=== PATIENT | male | born 1940 | race Caucasian/White ===

== ENCOUNTER 2016-04-14 11:40 | Emergency (ER) | payer MEDICARE, OTHER ==
[~2016-04-14] VITALS: Ht 180.3 cm; Wt 74.8 kg
[~2016-04-14 11:40] MED LIST: ASPIR 8181 MG PO; ASPIRIN 325MG325 MG PO; CARAFATE1 GM PO; CARVEDILOL6.25 MG PO; FLONASE 50 MCG16 GM; FOLIC ACID 1MG T1 MG PO; HYDROCHLOROTHIA25 M1 PO; HYDROXYCHLOROQ200 M1 PO; HYTRIN5 MG PO; IBUPROFEN200 MG PO; K-DUR 2020 MEQ PO; LEFLUNOMIDE20 MG PO; LEVAQUIN500 MG PO; LISINOPRIL5 MG PO; METHOTREXATE2.5 M1 PO; METOCLOPRAMIDE10 M3 PO; METOCLOPRAMIDE5 MG PO; PANTOPRAZOLE SO40 M1 PO; PRAVACHOL40 MG PO; PROTONIX40 MG PO; VITAMIN B-1100 MG PO; VITAMIN D1000 IU PO
--- NOTE | 2016-04-14 11:48 | Emergency Room Report ---
History of Present Illness Time Seen by 114Jimena Presenting Problem in Triage Pt arrived: Presenting Problem: Onset of symptoms date/time:/ or onset unknown for: Treatment Prior to Arrival: [facility] Provided by: Sepsis Risk Assessment: Temp: B/P: MAP: Pulse: Resp: Recent fever? Clinical Suspician of Infection? Mental Status: Sepsis Risk: Have you (or family members/close friends) recently traveled outside the [place]? If Yes, where/when: Have you had exposure to infectious disease within the past month? TB? Other? Specify: Source patient, RN notes reviewed Exam Limitations no limitations Comment Pt comes to the ED feeling weaker than a kitten since Monday. Now with pain in the abdomen below his beltline but no vomiting or diarrhea. He was anemia in Nov and in Feb. and required a total of 3 units of blood. He was treated with Chemotherapy in October for Lung Cancer and his last CT scan was reportedly clear. He has not noticed any black, tarry stools, and no BRB per rectum but he is on oral iron. NO fever Cardiac Chest Pain Chest pain indicative of cardiac No ALLERGIES Coded Allergies: No Known Allergies (03/11/16) Home Medications Active Scripts Sucralfate (Carafate) 1 GM PO ACHS #120 TAB Ref 4 Prov: 01/17/15 Aspirin (Aspirin EC 81MG Tab) 81 MG PO QHS #100 TAB Ref 4 Prov: 01/17/15 Pantoprazole Sodium (Protonix) 40 MG PO BID #60 TAB Ref 4 Prov: 01/17/15 Carvedilol (Carvedilol 6.25MG) 6.25 MG PO BID #60 TAB Ref 4 Prov: 01/17/15 Reported Medications HYDROCHLOROTHIAZIDE (Hydrochlorothiazide) 12.5 MG PO DAILY Lisinopril 5 MG PO BID #90 TAB Pravastatin Sodium (Pravachol) 40 MG PO QHS #90 THIAMINE HCL (Vitamin B-1) 100 MG PO DAILY #1 Leflunomide 20 MG PO DAILY #90 Fluticasone Propionate (Flonase [address]) 1 SPRAY NA DAILY #16 Ibuprofen (Ibuprofen 200MG) 200 MG PO Q6HP PRN PAIN #2 FOLIC ACID (Folic Acid) 1 MG PO DAILY #1 CHOLECALCIFEROL (VITAMIN D3) (Vitamin D3) 1,000 IUNITS PO DAILY #1 METHOTREXATE SODIUM (Methotrexate) 2.5 MG PO WEEKLY #52 Terazosin Hcl (Hytrin) 5 MG PO QHS #90 Potassium Chloride (K-Dur) 20 MEQ PO DAILY #180 HYDROXYCHLOROQUINE SULFATE (Hydroxychloroquine Sulfate) 200 MG PO DAILY #180 History Medical History General CAD? No Angina: Yes OR: Yes Hypertension? Yes Hyperlipidemia? Yes CHF? No DVT? No PE? No COPD? Yes Asthma? No Anemia? Yes GERD? No Gastric ulcers? No GI Bleed? No Hernia? Yes Thyroid Problems? No Hypothyroidism? No CVA? No Seizures? No Diabetes? No Renal Insuffiency? No End Stage Renal Disease? No UTI? Yes Stones? No BPH? No GB Disease: Yes Nephritic Syndrome? No Asplenia? No Hepatitis? No Sickle Cell Disease? No Arthritis? Yes Migraines? No Cataracts? No Glaucoma? No MRSA? No HIV? No TB? No Anxiety? No Depression? No Cancer? No Immunization Hx DT/Tetanus > 10 YRS Flu 01/17/15 Pneumonia Received In Past Surgical Hx Previous Surgery?Y Tonsils LAP VENTRAL HERNIA CABG 5 VESSELS CHOLECYSTECTOMY TRIGGER FINGER RELEASE LT PTCA 1985 +OR Family History Family Hx Diabetes Yes CAD Yes Hypertension Yes Hyperlipidemia Yes Cancer No TB No Social History Smoking Hx Packs/day < 1 Pack Alcohol Alcohol: No Review of Systems All Other Systems Reviewed and Negative Constitutional see HPI Gastrointestinal see HPI Physical Exam Vital Signs Vital Signs Date Time Temp Pulse Resp B/P Pulse O2 O2 Flow FiO2 Ox Delivery Rate 04/14 1606 76 18 175/99 97 04/14 1536 87 18 163/88 96 04/14 1456 98.2 74 18 166/87 96 04/14 1400 86 18 153/77 97 04/14 1324 70 16 165/84 91 04/14 1247 60 16 165/80 95 04/14 1145 98.0 68 16 145/78 95 General Appearance WD/WN, no apparent distress, pale white gentleman Respiratory Status No: respiratory distress. Lung Sounds bilateral: normal breath sounds. 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 No Results/Orders Laboratory Tests 04/14/16 1300: Urine Color YELLOW, Urine Appearance CLEAR, Urine pH 8.5, Ur Specific [place] 1.015, Urine Protein TRACE H, Urine Ketones NEGATIVE, Urine Blood NEGATIVE, Urine Nitrate NEGATIVE, Urine Bilirubin NEGATIVE, Urine Urobilinogen 0.2, Ur Leukocyte Esterase NEGATIVE, Urine WBC 3-5, Ur Squamous Epith Cells OCC, Urine Bacteria 2+, Hyaline Casts OCC, Urine Glucose NEGATIVE 04/14/16 1233: Lactic Acid 0.6 04/14/16 1200: Sodium 134 L, Potassium 4.1, Chloride 100, Carbon Dioxide 30, BUN 17, Creatinine 1.4 H, Estimated Creat Clear 47 L, Estimated GFR (MDRD) 49, Glucose 102, Calcium 8.5, Total Bilirubin 0.8, AST 16, ALT 17, Alkaline Phosphatase 135 H, Total Protein 6.2 L, Albumin 2.3 L, Globulin 3.9 H, Albumin/Globulin Ratio 0.6 L, PT 11.4, INR 1.07, WBC 4.7 L, RBC 3.42 L, Hgb 9.2 L, Hct 30.3 L, MCV 88.8, RDW 18.7 H, Plt Count 125 L, MPV 9.3, Gran % 74.0, Gran # 3.5, Lymphocytes % 16.0, Monocytes % 8.3, Eosinophils % 1.6, Basophils % 0.2, Lymphocytes # 0.8, Monocytes # 0.4, Eosinophils # 0.1, Basophils # 0.0, PUBS MCHC 30.3 L, MCH 26.9 L Current Medication Orders Sig/Yunior Start time Last Medication Dose Route Stop Time Status Admin Diatrizoate Meglum/ 0 .STK-MED ONE 04/14 1233 DC Diatrizoate Sod .ROUTE Promethazine HCl 0 .STK-MED ONE 04/14 1233 DC .ROUTE Sodium Chloride 1,000 ML .STK-MED ONE 04/14 1233 DC IV Sodium Chloride 25 ML .STK-MED ONE 04/14 1232 DC IV Diatrizoate Meglum/ 30 ML ONCE ONE 04/14 1230 DC 04/14 Diatrizoate Sod PO 04/14 1231 1236 Promethazine HCl 12.5 MG ONCE ONE 04/14 1230 DC 04/14 IV 04/14 1231 1236 Sodium Chloride 25 ML ONCE ONE 04/14 1230 DC 04/14 IV 04/14 1244 1237 Sodium Chloride 10 ML PRN PRN 04/14 1215 AC IV 04/15 1215 Sodium Chloride 1,000 ML .Q1H1M 04/14 1215 DC 04/14 IV 04/14 1315 1236 Sodium Chloride 10 ML PRN PRN 04/14 1215 AC IV 04/15 1215 Sodium Chloride 1,000 ML .Q10H 04/14 1215 AC IV 04/15 0015 Sodium Chloride 10 ML PRN PRN 04/14 1215 AC IV 04/15 1215 Orders Procedure Date/time Status DIET-NOTHING BY MOUTH 04/14 D Active CULTURE, URINE 04/14 1300 Active CULTURE, BLOOD 04/14 1225 Active CULTURE, BLOOD 04/14 1224 Active 12 LEAD EKG-BESSON (INITIAL) 04/14 1220 Active ELECTROCARDIOGRAM REQUEST 04/[address] ABD/PELVIS REQ 04/14 1217 Complete IV SALINE LOCK 04/14 1217 Active URINALYSIS/COMPLETE 04/14 1217 Complete PROTHROMBIN TIME 04/14 1217 Complete LACTIC ACID 04/14 1217 Complete CBC WITH AUTO DIFF 04/14 1217 Complete CHEM 12 PROFILE 04/14 1217 Complete CM/EKG CM/EKG EKG rate (64), NSR, LVH by voltage, ? Old inferior infarct pattern, tall peaked T waves XRAY/CT/US XRAY/CT/US CT abdomen, pelvis CT interpretation by discussed w/radiologist Time results known: 1619 CT Results No acute pathology. 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 Hunter and pt. being allowed to go home to continue drinking more fluids and followup with Dr. Hunter as scheduled next week Discharge Counseling Counseled pt/family regarding diagnosis, test results, home care, follow up needs ED Critical Care Critical Care No If Critical Care minutes are documented, the time involved in the performance of seperately reportable procedures was not counted toward critical care time documented. I directly delivered medical care to this critically ill and/or injured patient. Timely evaluation and treatment was necessary to address the significant organ system(s) dysfunction present in this patient. at [id number]
[2016-04-14 12:24] LABS: HEMOGLOBIN 9.2 g/dL (14.1-18.0); LYMPH # 0.8 K/mm3 (0.7-4.5)
[2016-04-14 13:07] LABS: URINE BILIRUBIN - DIPSTICK NEGATIVE (NEG); URINE BLOOD NEGATIVE (NEG)
[2016-04-14 13:12] LABS: URINE SQUAMOUS CELLS OCC #/hpf (OCC)
--- NOTE | 2016-04-14 15:06 | RADIOLOGY REPORT PS360 ---
CT ABD PELVIS W/O CONTRAST CLINICAL INDICATION: Abdominal pain ABD PAIN, ORAL CONTRAST ONLY ORDERING PHYSICIAN: Patricia Yu MD PATIENT AGE: 76 years COMPARISON: 11/10/2010 TECHNIQUE: Axial images obtained with sagittal and coronal reformats. PROCEDURE: Oral Contrast: [Gastroview] IV Contrast: None . FINDINGS: There is chronic consolidation in the right lung base small pleural effusion with pleural parenchymal thickening and fibrotic changes. The consolidation has somewhat improved since a chest CT of 03/04/2016. There is been a prior median sternotomy and there are coronary artery calcifications. No focal liver lesion. There is indentation along the lateral aspect of the right hepatic lobe nonspecific having a similar appearance on the previous chest CT. Prior cholecystectomy. Spleen is unremarkable. Mild prominence of the left adrenal gland unchanged. Unremarkable pancreas. 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 Unremarkable appendix. Sigmoid diverticulosis. No diverticulitis. No intestinal obstruction or free air. Atherosclerotic changes involve the abdominal aorta No acute bony anomalies IMPRESSION: 1. No acute intra-abdominal or pelvic pathology. 2. Chronic consolidation with effusion involving the right lower lobe. The consolidation is slightly improved since previous chest CT of 03/04/2016. 3. Nonacute findings including horseshoe kidney.
[2016-04-14 16:39] VITALS: BP 153/81
[2016-04-28] MEDS ORDERED: APAP/OXYCODONE1 TA1 PO (10:50)
[2016-04-28] MEDS ORDERED: FENTANYL 225 MCG/EAC TD (10:51)
[2016-04-28] MEDS ORDERED: VITAMIN B12 PO (10:53)
[2016-04-28] MEDS ORDERED: FERROUS SULFAT325 M2 PO (10:54)
[2016-04-28] MEDS ORDERED: IMDUR 30MG. TAB30 MG PO (13:36)
== END 2016-04-14 16:41 | disposition home or self-care (01) ==
LOC: ER 11:40
PROVIDERS: General Practice
DX: R53.1 Weakness (principal); D50.0 Iron deficiency anemia secondary to blood loss (chronic); N17.9 Acute kidney failure, unspecified; I10 Essential (primary) hypertension; Z85.118 Personal history of other malignant neoplasm of bronchus and lung; J44.9 Chronic obstructive pulmonary disease, unspecified; Z95.1 Presence of aortocoronary bypass graft

== ENCOUNTER 2016-11-28 18:17 | Inpatient (IN) | payer MEDICARE, OTHER ==
[~2016-11-28] VITALS: Ht 180.3 cm; Wt 72.8 kg
[~2016-11-28 18:17] MED LIST changes: +APAP/OXYCODONE1 TA1 PO; +FENTANYL 225 MCG/EAC TD; +FERROUS SULFAT325 M2 PO; -HYDROXYCHLOROQ200 M1 PO; +IMDUR 30MG. TAB30 MG PO; +LISINOPRIL 10MG10 MG PO; -LISINOPRIL5 MG PO; +PLAQUENIL200 MG PO; +VITAMIN B12 PO
[2016-11-28 18:35] VITALS: BP 110/74
[2016-11-28 19:10] LABS: HEMOGLOBIN 10.2 g/dL (14.1-18.0); LYMPH # 1.4 K/mm3 (0.7-4.5); LYMPH % 13.8 % (10-50)
[2016-11-28 19:11] LABS: URINE BILIRUBIN - DIPSTICK NEGATIVE (NEG); URINE BLOOD NEGATIVE (NEG)
--- NOTE | 2016-11-28 20:22 | Emergency Room Report ---
History of Present Illness Time Seen by 1999 Presenting Problem in Triage Pt arrived:Walked Presenting Problem:ABD PAIN BEGAN THIS AM, NAUSEA, DENIES VOMITING, DIARRHEA Onset of symptoms date/time:/ or onset unknown for:MEDICAL HX UNKNOWN Treatment Prior to Arrival: [facility] Provided by: Sepsis Risk Assessment: Temp: 98 B/P: 110/74 MAP: 86 Pulse: 83 Resp: 18 Recent fever? N Clinical Suspician of Infection? N Mental Status: 1 - Regular (Normal Baseline) Sepsis Risk:Low Sepsis Risk Have you (or family members/close friends) recently traveled outside the [place]? N If Yes, where/when: Have you had exposure to infectious disease within the past month? N TB? Other? Specify: Source patient, RN notes reviewed, family, old records Exam Limitations no limitations Comment pt with 1 day hx of abd pain with nausea but no fever or vomiting Cardiac Chest Pain Chest pain indicative of cardiac No Timing/Duration this evening Severity moderate ALLERGIES Coded Allergies: No Known Allergies (08/05/16) Home Medications Active Scripts Aspirin (Aspirin EC 81MG Tab) 81 MG PO QHS #100 TAB Ref 4 Prov: 01/17/15 Carvedilol (Carvedilol 6.25MG) 6.25 MG PO BID #60 TAB Ref 4 Prov: 01/17/15 Reported Medications [VITAMIN B12] 1 PO DAILY Ferrous Sulfate (Ferrous Sulfate 325MG) 325 MG PO DAILY ISOSORBIDE MONONITRATE (IMDUR 30MG) 30 MG PO DAILY Lisinopril 5 MG PO BID #90 TAB Pravastatin Sodium (Pravachol) 40 MG PO QHS #90 THIAMINE HCL (Vitamin B-1) 100 MG PO DAILY #1 Leflunomide 20 MG PO DAILY #90 Fluticasone Propionate (Flonase 50 Mcg Nasal [place]) 1 SPRAY NA DAILY #16 Ibuprofen (Ibuprofen 200MG) 200 MG PO Q6HP PRN PAIN #2 FOLIC ACID (Folic Acid) 1 MG PO DAILY #1 CHOLECALCIFEROL (VITAMIN D3) (Vitamin D3) 1,000 IUNITS PO DAILY #1 Terazosin Hcl (Hytrin) 5 MG PO QHS #90 Potassium Chloride (K-Dur) 20 MEQ PO DAILY #180 HYDROXYCHLOROQUINE SULFATE (Hydroxychloroquine Sulfate) 200 MG PO DAILY #180 History Medical History General CAD? No Angina: Yes ME: Yes Hypertension? Yes Hyperlipidemia? Yes CHF? No DVT? No PE? No COPD? Yes Asthma? No Anemia? Yes GERD? No Gastric ulcers? No GI Bleed? No Hernia? Yes Thyroid Problems? No Hypothyroidism? No CVA? No Seizures? No Diabetes? No Renal Insuffiency? No End Stage Renal Disease? No UTI? Yes Stones? No BPH? No GB Disease: Yes Nephritic Syndrome? No Asplenia? No Hepatitis? No Sickle Cell Disease? No Arthritis? Yes Migraines? No Cataracts? No Glaucoma? No MRSA? No HIV? No TB? No Anxiety? No Depression? No Cancer? Yes Site: LUNG More? No Immunization Hx DT/Tetanus > 10 YRS Flu 01/17/15 Pneumonia Received In Past Surgical Hx Previous Surgery?Y Tonsils LAP VENTRAL HERNIA CABG 5 VESSELS CHOLECYSTECTOMY TRIGGER FINGER RELEASE LT PTCA 1985 +ME Family History Family Hx Diabetes Yes CAD Yes Hypertension Yes Hyperlipidemia Yes Cancer No TB No Social History Smoking Hx Smoker: Never Smoker Tobacco: No Packs/day < 1 Pack Alcohol Alcohol: No Drugs none Review of Systems All Other Systems Reviewed and Negative Constitutional denies fever Eyes denies drainage ENT denies: ear discharge, epistaxis, throat pain. Respiratory denies cough, denies shortness of breath, denies wheezing Cardiovascular denies chest pain, denies palpitations, denies syncope Gastrointestinal see HPI, abdominal pain, denies diarrhea, nausea, vomiting Genitourinary denies: dysuria, frequency, hesitancy, hematuria. Musculoskeletal denies back pain, denies joint pain, denies joint swelling, denies neck pain Skin denies rash Psychiatric/Neurological denies headache, denies seizure Physical Exam Vital Signs Vital Signs Date Time Temp Pulse Resp B/P Pulse O2 O2 Flow FiO2 Ox Delivery Rate 11/28 2113 97.8 68 20 97/55 96 11/282 20 11/28 1835 98.0 83 18 110/74 98 - WBC >12,000 or <4,000 or 10% bands? 2 or more SIRS Criteria Met? B/P: MAP:86 Creatinine >2.0? UA output<0.5ml/kg/hr for 2 hrs? Platelet count >100,000? Lactate >2.0mmol/1? INR >1.2 or PTT > than 60 sec? Evidence of Organ Dysfunction? Provider documented clinical suspician of infection? N Sepsis Criteria Count: 0 Sepsis Risk: Low Sepsis Risk General Appearance no apparent distress Eye Exam - bilateral eye PERRL, bilateral eye EOMI Ear, Nose, Throat normal ENT inspection Neck supple Respiratory Status No: respiratory distress. Lung Sounds bilateral: lungs clear. 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 No Results/Orders Laboratory Tests 11/28/16 2100: Lactic Acid 2.0 11/28/161849: Troponin I 0.06, Amylase 51, Lipase 88 11/28/161849: Sodium 136, Potassium 4.1, Chloride 102, Carbon Dioxide 26, BUN 19 H, Creatinine 1.3, Estimated Creat Clear 48 L, Estimated GFR (MDRD) 54, Glucose 115 H, Calcium 8.9, Total Bilirubin 0.7, AST 12 L, ALT 15, Alkaline Phosphatase 143 H, Total Protein 6.5, Albumin 2.6 L, Globulin 3.9 H, Albumin/ Globulin Ratio 0.7 L, WBC 9.9, RBC 3.39 L, Hgb 10.2 L, Hct 31.1 L, MCV 91.8, RDW 15.0, Plt Count 233, MPV 9.0, Gran % 80.1 H, Gran # 7.9, Lymphocytes % 13.8 , Monocytes % 4.1, Eosinophils % 1.8, Basophils % 0.3, Lymphocytes # 1.4, Monocytes # 0.4, Eosinophils # 0.2, Basophils # 0.0, PUBS MCHC 32.9, MCH 30.2, Urine Color YELLOW, Urine Appearance CLEAR, Urine pH 6.0, Ur Specific [place] 1.025, Urine Protein NEGATIVE, Urine Ketones NEGATIVE, Urine Blood NEGATIVE, Urine Nitrate NEGATIVE, Urine Bilirubin NEGATIVE, Urine Urobilinogen 1.0, Ur Leukocyte Esterase NEGATIVE, Urine RBC OCC, Urine WBC 3-5, Ur Squamous Epith Cells 5-10, Urine Bacteria 1+, Urine Mucus 1+, Urine Glucose NEGATIVE Current Medication Orders Sig/Yunior Start time Last Medication Dose Route Stop Time Status Admin Morphine Sulfate 0 .STK-MED ONE 11/29 2111 DC .ROUTE Morphine Sulfate 2 MG ONCE ONE 11/28 2100 DC 11/28 IV 11/28 Sodium Chloride 1,000 ML .Q10H 11/28 2029 AC 11/28 IV 11/29 Sodium Chloride 10 ML PRN PRN 11/28 2029 AC IV 11/29 2025 Sodium Chloride 1,000 ML .STK-MED ONE 11/29 2027 DC IV Sodium Chloride 10 ML PRN PRN 11/28 190 AC IV 11/29 184 Orders Procedure Date/time Status DIET-NOTHING BY MOUTH 11/29 B Active Decision to admit 11/[address] ABD & PELVIS W/O CONTRAST 11/[address] SCAN REQ 11/28 2025 Complete TROPONIN I 11/28 2025 Complete LIPASE 11/28 2025 Complete LACTIC ACID 11/28 2025 Complete AMYLASE 11/28 2025 Complete IV SALINE LOCK 11/29 1847 Active URINALYSIS/COMPLETE 11/29 1847 Complete CBC WITH AUTO DIFF 11/29 1847 Complete CHEM 12 PROFILE 11/29 1847 Complete XRAY/CT/US XRAY/CT/US CT abdomen, pelvis CT interpretation by discussed w/radiologist Time results known: 2128 CT Results abnormal (sbo) Departure Departure Time of Disposition 2124 Disposition Still a Patient Clinical Impression Primary Impression: SBO (small bowel obstruction) Secondary Impressions: Anemia Qualifiers: Anemia type: unspecified type Qualified Code: D64.9 - Anemia, unspecified Condition STABLE Referrals Rocky Valentine MD discussed with dr valentine ED Critical Care Critical Care No at 2129
[2016-11-28 22:21] VITALS: BP 158/85
[2016-11-28 22:24] VITALS: BP 158/85
[2016-11-28] MEDS ORDERED: ASPIRIN325 M1 PO (22:37)
[2016-11-29 00:53] VITALS: BP 117/62
[2016-11-29 04:10] VITALS: BP 130/67
--- NOTE | 2016-11-29 05:23 | RADIOLOGY REPORT PS360 ---
CT ABD PELVIS W/O CONTRAST CLINICAL INDICATION: Severe abdominal pain with nausea and vomiting ABD PAIN ORDERING PHYSICIAN: Jsutine Hunter MD PATIENT AGE: 76 years COMPARISON: To 217 TECHNIQUE: Axial images obtained with sagittal and coronal reformats. PROCEDURE: Oral Contrast: None IV Contrast: None . FINDINGS: Lung base images show severe coronary artery calcifications. Chronic pleural-parenchymal changes are present in the bilaterally right greater than left with mild bronchiectasis in the right lower lobe and small loculated right pleural effusion not significantly changed. Prior cholecystectomy without biliary dilatation. 1 cm isodensity involves the intersegment of the medial segment of the left hepatic lobe unchanged. Spleen pancreas and adrenal glands are unremarkable. There is a horseshoe kidney. No hydronephrosis or nephrolithiasis or ureterolithiasis apparent. No evidence of appendicitis or diverticulitis. There is extensive sigmoid diverticulosis as well as diverticulosis of the descending colon. Fluid-filled loops of small bowel are present with air-fluid levels. There does appear to be a transition point in the anterior abdomen centrally somewhat difficult to evaluate without IV and oral contrast. No free air evident. Postsurgical changes from prior ventral hernia repair. There is a mild amount of fluid in the pelvis. No acute bony anomalies. IMPRESSION: 1. Multiple loops of mildly dilated small bowel in the mid and proximal small bowel with transition point in the anterior mid abdomen consistent with partial small bowel obstruction. 2. Small amount fluid in the pelvis. 3. Other nonacute findings as described
[2016-11-29 06:49] LABS: LYMPH # 1.3 K/mm3 (0.7-4.5); LYMPH % 20.8 % (10-50)
[2016-11-29 06:50] LABS: HEMOGLOBIN 8.7 g/dL (14.1-18.0)
--- NOTE | 2016-11-29 07:37 | PHARMACY CLINIC NOTE ---
Patient Demographics Patient Demographics Admission date: 11/28/16 Date: 11/29/16 Time: 0736 Allergies Coded Allergies: No Known Allergies (08/05/16) HEIGHT- FT: 5 IN: 11.00 K.882 VTE General Information Labs: Laboratory Tests 11/29 11/28 0615 1850 Hematology Hgb (14.1 - 18.0 g/dL) 8.7 L 10.2 L Hct (42.0 - 52.0 %) 26.4 L 31.1 L Plt Count (142 - 424 K/mm3) 185 233 Disclaimer The following section includes nursing documentation that has been pulled in for pharmacy review. Patient's VTE score: 5 Patient's VTE Risk: LOW RISK Clinical trial participant? No VTE prophylaxis [id number] [id number] VTE prophylaxis ordered? Yes Type of prophylaxis/treatment: TERRY at 0737
[2016-11-29 07:43] VITALS: BP 152/80
[2016-11-29 07:54] VITALS: BP 152/80
[2016-11-29] MEDS ORDERED: FERROUS GLUCON324 MG PO (09:14)
[2016-11-29] MEDS ORDERED: CYTOTEC 200MC200 MC1 PO (09:25)
[2016-11-29] MEDS ORDERED: MEGESTROL AC FT (09:26)
[2016-11-29] MEDS ORDERED: OMEPRAZOLE20 MG PO (09:27)
[2016-11-29] MEDS ORDERED: CLARITIN LIQUI-10 MG PO (09:28)
[2016-11-29] MEDS ORDERED: METHOTREXATE 22.5 MG PO (09:29)
[2016-11-29] MEDS ORDERED: MYRBETRIQ25 MG PO (09:29)
[2016-11-29] MEDS ORDERED: PROAIR RES117 MCG/Ac IH (09:30)
[2016-11-29] MEDS ORDERED: CARVEDILOL6.25 M1 PO (09:31)
[2016-11-29] MEDS ORDERED: CARVEDILOL6.25 MG PO (09:32)
--- NOTE | 2016-11-29 09:43 | HISTORY AND PHYSICAL REPORT ---
History and Physical ([facility]) Date of admission: 11/28/16 Chief complaint: abdominal pain History: History of Present Illness: Mr Ocampo is a 76 year old male with a history of anemia, RA, GERD, HTN, Lung cancer, PUD, and CAD who presented to [facility] ER with 1 day of severe sharp, abdominal pain associated with nausea. He states he did not vomit or have diarrhea. He had 3 formed stools yesterday AM. He felt well prior to the sudden onset of this pain. When the pain persisted he came to the ER. He is sometimes SOB and denies CP. With evaluation in the ER CT revealed a partial SBO; He was give Morphine for the pain and admitted. This AM the pain persists but is not sharp. He is nauseated when sitting. He is voiding. He has had no further stools and no vomiting. Past Medical History: Medical History: CAD? Yes Angina: Yes IA: Yes Hypertension? Yes Hyperlipidemia? Yes CHF? No DVT? No PE? No COPD? Yes Asthma? No Anemia? Yes GERD? Yes Gastric ulcers? Yes GI Bleed? No Hernia? Yes Thyroid Problems? No Hypothyroidism? No CVA? No Seizures? No Diabetes? No Renal Insuffiency? No UTI? Yes Stones? No BPH? Yes GB Disease: Yes Nephritic Syndrome? No Asplenia? No Hepatitis? No Sickle Cell Disease? No Arthritis? Yes Migraines? No Cataracts? No Glaucoma? No MRSA? No HIV? No TB? No Anxiety? No Depression? No Cancer? Yes Site: LUNG More? Yes Additional hx: Rheumatoid arthritis Horseshoe kidneys Diverticulosis Surgical history: Previous Surgery?Y Tonsils LAP VENTRAL HERNIA CABG 5 VESSELS CHOLECYSTECTOMY TRIGGER FINGER RELEASE LT PTCA 1985 +[place] Allergies: Coded Allergies: No Known Allergies (08/05/16) Family History: Family history: Postive for: CAD. Negative for: DM, HTN, TIA, stroke. Social History: Smoking Hx Tobacco: No Smoker: Never Smoker Type: N/A Packs/day: < 1 Pack Are you exposed to second hand No Alcohol: Alcohol: No Hx of Drug Use: Drug Use? No Review of Systems: Constitutional Positive for: weak. ENT No: ear ache, mouth pain, sore throat. Cardiovascular No: chest pain, edema, palpitations. Respiratory Positive for: non-productive. No: shortness of air. GI Positive for: GERD, abdominal pain, hernia. No: constipation, diarrhea, hematemeis, hematochezia, melena, nausea, vomitting. (female) No: frequency, hematuria. Neurological Positive for: headache. No: confusion, seizure, syncope. Musculoskeletal Positive for: extremity pain. Physical Exam: Vital signs: 1ST Vital Signs Result Date Time Pulse Ox 98 11/28 1834 B/P 110/74 11/28 1834 Temp 98.0 11/28 1834 Pulse 83 11/28 1834 Resp 18 11/28 1834 O2 Delivery ROOM AIR 11/28 2220 Exam: General appearance: alert, no acute distress, awakened for exam Cardiovascular: regular rate & rhythm Respiratory: clear to auscultation (bilat anterior and posterior) ABD: non-distended, soft, bowel sounds present, tenderness (RUQ; epigastrium) Extremities: moves all, no peripheral edema, no calf tenderness Neuro: alert, oriented, speech clear Lab data: Labs: Laboratory Tests 11/29/16 0615: Sodium 137, Potassium 4.3, Chloride 105, Carbon Dioxide 26, BUN 19 H, Creatinine 1.3, Estimated Creat Clear 47 L, Estimated GFR (MDRD) 54, Glucose 86 , Calcium 8.4 L, WBC 6.1, RBC 2.87 L, Hgb 8.7 L, Hct 26.4 L, MCV 92.0, RDW 14.9, Plt Count 185, MPV 9.4, Gran % 70.3, Gran # 4.3, Lymphocytes % 20.8, Monocytes % 6.1, Eosinophils % 2.2, Basophils % 0.5, Lymphocytes # 1.3, Monocytes # 0.4, Eosinophils # 0.1, Basophils # 0.0, PUBS MCHC 32.8, MCH 30.1 11/28/16 2100: Lactic Acid 2.0 11/28/160: Troponin I 0.06, Amylase 51, Lipase 88 11/28/161849: Sodium 136, Potassium 4.1, Chloride 102, Carbon Dioxide 26, BUN 19 H, Creatinine 1.3, Estimated Creat Clear 48 L, Estimated GFR (MDRD) 54, Glucose 115 H, Calcium 8.9, Total Bilirubin 0.7, AST 12 L, ALT 15, Alkaline Phosphatase 143 H, Total Protein 6.5, Albumin 2.6 L, Globulin 3.9 H, Albumin/ Globulin Ratio 0.7 L, WBC 9.9, RBC 3.39 L, Hgb 10.2 L, Hct 31.1 L, MCV 91.8, RDW 15.0, Plt Count 233, MPV 9.0, Gran % 80.1 H, Gran # 7.9, Lymphocytes % 13.8 , Monocytes % 4.1, Eosinophils % 1.8, Basophils % 0.3, Lymphocytes # 1.4, Monocytes # 0.4, Eosinophils # 0.2, Basophils # 0.0, PUBS MCHC 32.9, MCH 30.2, Urine Color YELLOW, Urine Appearance CLEAR, Urine pH 6.0, Ur Specific [place] 1.025, Urine Protein NEGATIVE, Urine Ketones NEGATIVE, Urine Blood NEGATIVE, Urine Nitrate NEGATIVE, Urine Bilirubin NEGATIVE, Urine Urobilinogen 1.0, Ur Leukocyte Esterase NEGATIVE, Urine RBC OCC, Urine WBC 3-5, Ur Squamous Epith Cells 5-10, Urine Bacteria 1+, Urine Mucus 1+, Urine Glucose NEGATIVE Radiology results: Results: 11/28/16 CT of abdomen /pelvis IMPRESSION: 1. Multiple loops of mildly dilated small bowel in the mid and proximal small bowel with transition point in the anterior mid abdomen consistent with partial small bowel obstruction. 2. Small amount fluid in the pelvis. 3. Other nonacute findings as described Diagnosis(es): 1. SBO (small bowel obstruction) Status: Acute 2. Anemia Status: Chronic 3. Weakness Status: Chronic 4. Lung cancer Status: Chronic 5. Rheumatoid arthritis Status: Chronic 6. GERD (gastroesophageal reflux disease) Status: Chronic 7. Coronary artery disease Status: Chronic 8. Hypertension Status: Chronic Plan: Surgical consult; acute abdominal series; IVF; GI rest; pain and nausea management; some of home meds started (Nina Marvin APRN) Date of admission: 11/28/16 Past Medical History: Medications: Discontinued Scripts Carvedilol (Carvedilol 6.25MG) 6.25 MG PO BID #60 TAB Ref 4 Prov: 01/17/15 DC: 11/29/16 0932 Reported Medications LISINOPRIL (Lisinopril) 10 MG PO BID Potassium Chloride (K-Dur) 20 MEQ PO DAILY #180 Hydroxychloroquine Sulfate (Plaquenil) 200 MG PO BID Ferrous Gluconate 324 MG PO BID Misoprostol (Cytotec 200MCG Tab) 200 MCG PO TID Megestrol Acetate (Megestrol 400MG/10ML UDC) 40 MG FT 20ML DAILY Omeprazole (Omeprazole 20MG) 20 MG PO DAILY Loratadine (Claritin) 10 MG PO DAILY Methotrexate 2.5 MG PO 4 TAB WEEKLY Mirabegron (Myrbetriq) 25 MG PO DAILY Albuterol Sulfate (Proair Respiclick) 117 MCG IH QIDP PRN SOB Carvedilol 6.25 MG PO 2 QAML ! QPM Aspirin 325 MG PO DAILY Pravastatin Sodium (Pravachol) 40 MG PO QHS #90 Leflunomide 20 MG PO DAILY #90 Fluticasone Propionate (Flonase 50 Mcg Nasal [place]) 1 SPRAY NA DAILY #16 CHOLECALCIFEROL (VITAMIN D3) (Vitamin D3) 1,000 IUNITS PO DAILY #1 Terazosin Hcl (Hytrin) 5 MG PO QHS #90 Discontinued Reported Medications [VITAMIN B12] 1 PO DAILY Ferrous Sulfate (Ferrous Sulfate 325MG) 325 MG PO DAILY THIAMINE HCL (Vitamin B-1) 100 MG PO DAILY #1 DC: 11/29/16 0932 Ibuprofen (Ibuprofen 200MG) 200 MG PO Q6HP PRN PAIN #2 DC: 11/29/16 0932 FOLIC ACID (Folic Acid) 1 MG PO DAILY #1 DC: 11/29/16 0932 Diagnosis(es): 1. SBO (small bowel obstruction) Status: Acute 2. Anemia Status: Chronic 3. Weakness Status: Chronic 4. Lung cancer Status: Chronic 5. Rheumatoid arthritis Status: Chronic 6. GERD (gastroesophageal reflux disease) Status: Chronic 7. Coronary artery disease Status: Chronic 8. Hypertension Status: Chronic Plan: Patient seen and examined. He appears comfortable and stable. Concur with above assessment and plan. (Rocky Maria MD) at 0943 at [phone]
--- NOTE | 2016-11-29 09:48 | RADIOLOGY REPORT PS360 ---
ABD ACUTE(MUL VIEWS) HISTORY: Bowel obstruction, abdominal pain ORDERING PHYSICIAN: Justine Hunter MD PATIENT AGE: 76 years COMPARISON: 11/09/2015 FINDINGS: Frontal view of the chest shows right IJ Port-A-Cath with the tip in region of SVC. There has been a prior median sternotomy. Normal heart size. Chronic pulmonary parenchymal changes are present with COPD. There is pleural thickening involving the right mid and lower thorax laterally with a cavity present in the right upper lung zone laterally measuring 6 x 2.5 cm associated with the pleural thickening. Cavitating mass or abscess is a consideration. Please correlate with clinical findings. No pertinent clinical history given as far as history of neoplasm. Tuberculosis is also a consideration. Upright and supine views of the abdomen show scattered air-fluid levels within the small bowel with some gas in the colon. These findings are consistent with at least partial small bowel obstruction. No free air evident. Probably no significant change compared to 11/28/2016 CT scan. Postsurgical changes with multiple abdominal wall tacks are present. IMPRESSION: 1. FINDINGS consistent with partial small bowel obstruction 2. There is pleural thickening involving the right mid and lower thorax laterally with a cavity present in the right upper lung zone laterally measuring 6 x 2.5 cm associated with the pleural thickening. Cavitating mass or abscess is a consideration. Please correlate with clinical findings. No pertinent clinical history given as far as history of neoplasm. Tuberculosis is also a consideration.
--- NOTE | 2016-11-29 11:21 | CONSULT NOTE ---
Standard Demographics Patient Demo Date of Consultation: 11/29/16 Referring Provider: Archie Hunter MD Reason for Consultation: Bowel Obstruction PRIMARY DIAGNOSIS: small bowel obstruction Allergies: Coded Allergies: No Known Allergies (08/05/16) History of Present Illness Chief Complaint: Severe abdominal pain History of Present Illness: Patient is a 76-year-old white male who had previously undergone laparoscopic ventral hernia repair by Dr. Willett stated for recurrent ventral hernia in 2002. He has a history of coronary artery disease with previous myocardial infarction, coronary artery bypass grafting, and lung cancer. He was in his usual state of health until yesterday morning at which time he developed sudden onset of quite severe pain. He describes it as a 10 out of 10. He had episodes of vomiting. He ultimately presented to the emergency department early yesterday evening at which time he underwent CT scan without contrast. His revealed findings consistent with small bowel obstruction with transition point. Patient was admitted. Overnight he had continued pain although somewhat improved. He still has not passed any flatus. He's had continued nausea with occasional vomiting. Surgical consultation was obtained today. Patient has no prior history of bowel obstruction. He has undergone several colonoscopies by Dr. Lal in the past. Past Medical History Reports: CAD, COPD, hypertension, peptic ulcer disease, asthma, GERD, cancer. Surgical History Previous Surgery?Y Tonsils LAP VENTRAL HERNIA CABG 5 VESSELS CHOLECYSTECTOMY TRIGGER FINGER RELEASE LT PTCA 1985 +[place] Allergies Coded Allergies: No Known Allergies (08/05/16) Medications: Discontinued Scripts Carvedilol (Carvedilol 6.25MG) 6.25 MG PO BID #60 TAB Ref 4 Prov: 01/17/15 DC: 11/29/16 0932 Reported Medications LISINOPRIL (Lisinopril) 10 MG PO BID Potassium Chloride (K-Dur) 20 MEQ PO DAILY #180 Hydroxychloroquine Sulfate (Plaquenil) 200 MG PO BID Ferrous Gluconate 324 MG PO BID Misoprostol (Cytotec 200MCG Tab) 200 MCG PO TID Megestrol Acetate (Megestrol 400MG/10ML UDC) 40 MG FT 20ML DAILY Omeprazole (Omeprazole 20MG) 20 MG PO DAILY Loratadine (Claritin) 10 MG PO DAILY Methotrexate 2.5 MG PO 4 TAB WEEKLY Mirabegron (Myrbetriq) 25 MG PO DAILY Albuterol Sulfate (Proair Respiclick) 117 MCG IH QIDP PRN SOB Carvedilol 6.25 MG PO 2 QAML ! QPM Aspirin 325 MG PO DAILY Pravastatin Sodium (Pravachol) 40 MG PO QHS #90 Leflunomide 20 MG PO DAILY #90 Fluticasone Propionate (Flonase 50 Mcg Nasal [place]) 1 SPRAY NA DAILY #16 CHOLECALCIFEROL (VITAMIN D3) (Vitamin D3) 1,000 IUNITS PO DAILY #1 Terazosin Hcl (Hytrin) 5 MG PO QHS #90 Discontinued Reported Medications [VITAMIN B12] 1 PO DAILY Ferrous Sulfate (Ferrous Sulfate 325MG) 325 MG PO DAILY THIAMINE HCL (Vitamin B-1) 100 MG PO DAILY #1 DC: 11/29/16 0932 Ibuprofen (Ibuprofen 200MG) 200 MG PO Q6HP PRN PAIN #2 DC: 11/29/16 0932 FOLIC ACID (Folic Acid) 1 MG PO DAILY #1 DC: 11/29/16 0932 Smoking Hx Tobacco: No Smoker: Never Smoker Type: N/A Packs/day: < 1 Pack Are you/the child exposed to second-hand smoke: No Alcohol Alcohol: No Hx of Drug Use Drug Use? No Review of Systems Constitutional Positive for: weak. No: chills. Skin No: contusions. Immune/allergy No: anaphalaxis. Eyes No: vision loss. ENT No: hearing loss. Respiratory Positive for: non-productive. Cardiovascular No: chest pain. GI Positive for: GERD, abdomen, nausea, vomitting. (male) No: hematuria. Musculoskeletal No: extremity pain. Heme No: bleeding. Endocrine No: cold intolerance. Neurological No: change in LOC. Physical Exam Exam General appearance no acute distress Respiratory decreased breath sounds Cardiovascular regular rate and rhythm Abdomen soft Findings/Data On examination his abdomen is soft. He does have some deep tenderness to palpation. No guarding or rebound. He has good normal bowel sounds. Plan Plan: Patient has findings consistent with small bowel obstruction on presentation to the emergency department. He has had continued significant abdominal pain with vomiting. He still does not have a nasogastric tube and I'll start with placing this. Attempts nonoperative management initially. However, given the patient's symptoms and radiographic findings there is an appreciable risk that he could require operative intervention. Recommend cardiology assessment for risk. at 1121
--- NOTE | 2016-11-29 12:46 | CONSULT NOTE ---
Standard Demographics Patient Demo Date of Consultation: 11/29/16 Referring Provider: Archie Hunter MD Reason for Consultation: Bowel Obstruction, Pre-op evaluation, CAD PRIMARY DIAGNOSIS: small bowel obstruction Problem list Problem list: 1. Coronary artery disease A. history of previous myocardial infarction in 1985 B. five-vessel coronary artery bypass grafting in 1996 C. Cardiac cath, 01/2015, medical therapy recommended for severe andreafski CAD with patent SVG to first and terminal OM, GONZALEZ to LAD. LVEDP of 20 mm Hg. EF 35% . D. Cardiomyopathy by cath but Echo showed EF >55%, 01/2015 2. Hypertension 3. Hyperlipidemia 4. Right Lung Cancer, s/p chemo and radiation, [id number] 5. Arthritis 6. Remote tobacco use discontinued 1985 7. Recurrent anemia A. EGD, 08/2016, Dr. Self, prepyloric gastric ulcer, Schatzki's ring that was dilated, gastroesophageal reflux disease without esophagitis. History of present illness: History of present illness: [id number] white male admitted for acute onset of abdominal pain. Workup has revealed small bowel obstruction with surgical consult obtained earlier today. Cardiology asked to see for possible surgical intervention in light of his known coronary disease with previous bypass surgery. Cardiac catheterization January 2015 without need for intervention. Medical therapy recommended at that time. Patient denies any recent chest pain, pressure or tightness. Recent CAT scan of the lungs to follow-up on lung cancer reportedly clear. Past Medical History: General: Hypertension Yes CVA No Seizures No TB No COPD Yes Asthma No Diabetes No Angina Yes [place] Yes Hyperlipidemia Yes Cancer Yes Ulcers Yes MRSA No GB Disease Yes Other RHEUMATOID ARTHRITIS Additional hx Rheumatoid arthritis Horseshoe kidneys Diverticulosis Past Surgical HX: Previous Surgery?Y Tonsils LAP VENTRAL HERNIA CABG 5 VESSELS CHOLECYSTECTOMY TRIGGER FINGER RELEASE LT PTCA 1985 +[place] Allergies Coded Allergies: No Known Allergies (08/05/16) Home medications: Discontinued Scripts Carvedilol (Carvedilol 6.25MG) 6.25 MG PO BID #60 TAB Ref 4 Prov: 01/17/15 DC: 11/29/16 0932 Reported Medications LISINOPRIL (Lisinopril) 10 MG PO BID Potassium Chloride (K-Dur) 20 MEQ PO DAILY #180 Hydroxychloroquine Sulfate (Plaquenil) 200 MG PO BID Ferrous Gluconate 324 MG PO BID Misoprostol (Cytotec 200MCG Tab) 200 MCG PO TID Megestrol Acetate (Megestrol 400MG/10ML UDC) 40 MG FT 20ML DAILY Omeprazole (Omeprazole 20MG) 20 MG PO DAILY Loratadine (Claritin) 10 MG PO DAILY Methotrexate 2.5 MG PO 4 TAB WEEKLY Mirabegron (Myrbetriq) 25 MG PO DAILY Albuterol Sulfate (Proair Respiclick) 117 MCG IH QIDP PRN SOB Carvedilol 6.25 MG PO 2 QAML ! QPM Aspirin 325 MG PO DAILY Pravastatin Sodium (Pravachol) 40 MG PO QHS #90 Leflunomide 20 MG PO DAILY #90 Fluticasone Propionate (Flonase 50 Mcg Nasal [place]) 1 SPRAY NA DAILY #16 CHOLECALCIFEROL (VITAMIN D3) (Vitamin D3) 1,000 IUNITS PO DAILY #1 Terazosin Hcl (Hytrin) 5 MG PO QHS #90 Discontinued Reported Medications [VITAMIN B12] 1 PO DAILY Ferrous Sulfate (Ferrous Sulfate 325MG) 325 MG PO DAILY THIAMINE HCL (Vitamin B-1) 100 MG PO DAILY #1 DC: 11/29/16 0932 Ibuprofen (Ibuprofen 200MG) 200 MG PO Q6HP PRN PAIN #2 DC: 11/29/16 0932 FOLIC ACID (Folic Acid) 1 MG PO DAILY #1 DC: 11/29/16 0932 Current Medications: Current Medications Terazosin HCl 5 MG QHS PO Morphine Sulfate 0 .STK-MED ONE .ROUTE (DC) Carvedilol 6.25 MG BID PO Isosorbide Mononitrate 30 MG DAILY PO Lisinopril 10 MG BID PO Morphine Sulfate 4 MG Q4HP PRN IV Morphine Sulfate 0 .STK-MED ONE .ROUTE (DC) Morphine Sulfate 0 .STK-MED ONE .ROUTE (DC) Morphine Sulfate 0 .STK-MED ONE .ROUTE (DC) Morphine Sulfate 2 MG ONCE ONE IV (DC) Promethazine HCl 6.25 MG ONCE ONE IV (DC) Sodium Chloride 25 ML ONCE ONE IV (DC) Morphine Sulfate 4 MG Q4HP PRN IV (DC) Ondansetron HCl 4 MG Q6HP PRN IV Sodium Chloride 1,000 ML .[id number] IV Morphine Sulfate 0 .STK-MED ONE .ROUTE (DC) Morphine Sulfate 2 MG ONCE ONE IV (DC) Sodium Chloride 1,000 ML .Q10H IV (DC) Sodium Chloride 10 ML PRN PRN IV Sodium Chloride 1,000 ML .STK-MED ONE IV (DC) Sodium Chloride 10 ML PRN PRN IV Immunization HX DT/Tetanus > 10 YRS Flu 01/17/15 Pneumonia RECEIVED IN PAST TB Test in last year No Family history Family HX Family Hx Insignificant No Diabetes Yes CAD Yes Hypertension Yes Hyperlipidemia Yes Cancer No TB No Social Hx: Smoking HX Tobacco No Type N/A Packs/day < 1 PACK Are you/the child exposed to second-hand smoke: No Alcohol Alcohol: No Hx of Drug Use Drug Use? No Review of systems: Constitutional No: no symptoms reported. Respiratory No: no symptoms reported. Cardiovascular No no symptoms reported Gastrointestinal/Abdominal see HPI, abdominal pain, vomiting Genitourinary No: no symptoms reported. Musculoskeletal No: no symptoms reported. Neurological No: no symptoms reported. Exam: Admission Vital Signs: 1ST Vital Signs Result Date Time Pulse Ox 98 11/28 1835 B/P 110/74 11/28 1835 Temp 98.0 11/28 1835 Pulse 83 11/28 1835 Resp 18 11/28 1835 O2 Delivery ROOM AIR 11/28 2221 Last Vital Signs: Vital Signs Result Date Time Resp 18 11/29 1117 Pulse Ox 95 11/29 0754 B/P 152/80 11/29 0754 Temp 98.0 11/29 0754 Pulse 91 11/29 0754 O2 Delivery ROOM AIR 11/29 0743 Exam General appearance: alert, awake, no acute distress ENT: NG tube in place Neck: no carotid bruit Cardiovascular: regular rate & rhythm Respiratory: clear to auscultation, good air movement ABD: soft Extremities: moves all, no peripheral edema Neuro: alert, intact, oriented Laboratory data: Laboratory Tests 11/29/16 0615: Sodium 137, Potassium 4.3, Chloride 105, Carbon Dioxide 26, BUN 19 H, Creatinine 1.3, Estimated Creat Clear 47 L, Estimated GFR (MDRD) 54, Glucose 86 , Calcium 8.4 L, WBC 6.1, RBC 2.87 L, Hgb 8.7 L, Hct 26.4 L, MCV 92.0, RDW 14.9, Plt Count 185, MPV 9.4, Gran % 70.3, Gran # 4.3, Lymphocytes % 20.8, Monocytes % 6.1, Eosinophils % 2.2, Basophils % 0.5, Lymphocytes # 1.3, Monocytes # 0.4, Eosinophils # 0.1, Basophils # 0.0, PUBS MCHC 32.8, MCH 30.1 11/28/16 2100: Lactic Acid 2.0 11/28/160: Troponin I 0.06, Amylase 51, Lipase 88 11/28/161849: Sodium 136, Potassium 4.1, Chloride 102, Carbon Dioxide 26, BUN 19 H, Creatinine 1.3, Estimated Creat Clear 48 L, Estimated GFR (MDRD) 54, Glucose 115 H, Calcium 8.9, Total Bilirubin 0.7, AST 12 L, ALT 15, Alkaline Phosphatase 143 H, Total Protein 6.5, Albumin 2.6 L, Globulin 3.9 H, Albumin/ Globulin Ratio 0.7 L, WBC 9.9, RBC 3.39 L, Hgb 10.2 L, Hct 31.1 L, MCV 91.8, RDW 15.0, Plt Count 233, MPV 9.0, Gran % 80.1 H, Gran # 7.9, Lymphocytes % 13.8 , Monocytes % 4.1, Eosinophils % 1.8, Basophils % 0.3, Lymphocytes # 1.4, Monocytes # 0.4, Eosinophils # 0.2, Basophils # 0.0, PUBS MCHC 32.9, MCH 30.2, Urine Color YELLOW, Urine Appearance CLEAR, Urine pH 6.0, Ur Specific [place] 1.025, Urine Protein NEGATIVE, Urine Ketones NEGATIVE, Urine Blood NEGATIVE, Urine Nitrate NEGATIVE, Urine Bilirubin NEGATIVE, Urine Urobilinogen 1.0, Ur Leukocyte Esterase NEGATIVE, Urine RBC OCC, Urine WBC 3-5, Ur Squamous Epith Cells 5-10, Urine Bacteria 1+, Urine Mucus 1+, Urine Glucose NEGATIVE Plan: Assessment: 1. Small bowel obstruction with possible need for surgical intervention. 2. History of coronary disease with coronary bypass grafting. Cardiac status stable at this time on current medical therapy. 3. History of hypertension 4. History of recurrent anemia 5. Hyperlipidemia 6. History of lung cancer status post chemotherapy and radiation Recommendations: 1. Echocardiogram has been performed with preliminary results showing preserved ejection fraction. 2. Patient is an acceptable risk from cardiac standpoint to proceed with surgical intervention if needed for small bowel obstruction. Recommend continuing his aspirin and cardiac medicines perioperatively. at 1609
[2016-11-29 15:35] VITALS: BP 131/63
[2016-11-29 20:19] VITALS: BP 113/68
[2016-11-30] VITALS (18 sets, daily range): BP systolic 102–194; BP diastolic 55–118
--- NOTE | 2016-11-30 06:24 | RADIOLOGY REPORT PS360 ---
PROCEDURE: 2-D M-mode and color Doppler study INDICATIONS FOR THE TEST: Chest pain COPD Heart Murmur Tobacco Smoking Palpitations Fatigue Syncope Edema HypertensionXDiabetes Mellitus Rheumatic Fever SOB DOMINGUEZ Obesity HyperlipidemiaX Family History HD Additional History CAD,CABG,PRE-OP SBO PATIENT INFORMATION HEIGHT: 70 WEIGHT:154 GENDER: Male B/P:110/74 2-D/M-MODE INTERPRETATION: 2-D MEASUREMENTS OBSERVED VALUES IN CMS Right Ventricular Dimension (RVDd) 2.6 Interventricular Septum (Thickness)(IVsd) 1.2 Left Ventricular Internal Dimensions(LVIDd) 5.8 Left Ventricular Posterior Wall (Thickness)(LVPWd) 1.2 Aortic Root 3.9 Aortic Cusp Separation 1.6 Left Atrial Dimensions (LAD) 3.9 2D 1. Left atrium is mildly enlarged, left ventricle is normal size, there is mild concentric left ventricular hypertrophy, visually estimated ejection fraction approximately 45%, there appears to be marked hypokinesis involving the inferobasal and posterobasal wall, endocardial surfaces are somewhat poorly visualized. 2. The right atrium and right ventricle are normal size and contractility. 3. The aortic valve is thickened and calcified leaflet continue to display mobility. 4. The mitral valve has mitral annular calcification, mitral leaflets are minimally thickened. 5. The tricuspid valve is structurally normal. 6. No significant pericardial effusion noted. DOPPLER INTERROGATION: Doppler interrogation of the aortic, mitral and tricuspid valvular presence of mild mitral and tricuspid regurgitation, grade 1 diastolic dysfunction seen without tissue Doppler evidence of raised left atrial pressure. Tricuspid regurgitant jet velocity is insufficient for calculation of the right ventricular systolic pressure. CONCLUSION: 1. Mildly enlarged left atrium, normal left ventricular size, mild concentric left ventricular hypertrophy, visually estimated ejection fraction of 45% with segmental wall motion abnormality as described above, endocardial surfaces are poorly visualized. Grade 1 diastolic dysfunction seen without tissue Doppler evidence of raised left atrial pressure. 2. Thickened and calcified aortic valve without any significant aortic stenosis aortic insufficiency. 3. Mild mitral and tricuspid regurgitation. 4. No significant pericardial effusion noted.
--- NOTE | 2016-11-30 07:05 | SURGEON PROGRESS NOTE ---
Subjective data Subjective data: BERRY ROSAS is a 76 M .Patient denies complaint of nausea and vomitting.He reports his last pain level as 0 on a 0-10 pain scale. Patient states "not doing as well as I would like". Not passing flatus. Some pain. Assessment findings Assessment Exam ABD: soft, no tenderness Patient plan Plan: IV fluids Additional data: Check AAS. Likely will need laparotomy. May need transfusion. at 0705
[2016-11-30 07:29] LABS: LYMPH % 11.4 % (10-50)
[2016-11-30 07:38] LABS: HEMOGLOBIN 9.6 g/dL (14.1-18.0)
--- NOTE | 2016-11-30 08:33 | ACUTE CARE PROGRESS NOTE (QUA) ---
Progress Notes Subjective Date 11/30/16 Time 0823 Note 76-year-old white male in bed in no acute distress. Patient does relate some increasing abdominal discomfort this morning and nausea. He denies any vomiting. Denies any chest pain. Denies any flatus or bowel movement. Objective Findings Last VS-Temp:97.8 B/P:135/79 Pulse:121 Resp:18 SaO2:93 ROOM AIR Last weight lbs:154 oz:1 K.882 Method:Bed Scales Exam General appearance: alert, awake Cardiovascular: tachycardia Respiratory: clear to auscultation Reviewed: medications, vital signs, lab results Assessment/Plan Problem List 1. SBO (small bowel obstruction) Status: Acute 2. Anemia Status: Chronic Qualifiers: Anemia type: unspecified type Qualified Code: D64.9 - Anemia, unspecified 3. Weakness Status: Chronic 4. Lung cancer Status: Chronic 5. Rheumatoid arthritis Status: Chronic 6. GERD (gastroesophageal reflux disease) Status: Chronic 7. Coronary artery disease Status: Chronic Qualifiers: Coronary Disease-Associated Artery/Lesion type: [place] artery [place] vs. transplanted heart: [place] heart Associated angina: without angina Qualified Code: I25.10 - Atherosclerotic heart disease of [place] coronary artery without angina pectoris 8. Hypertension Status: Chronic Patient condition Guarded Plan: Cardiac status stable. Patient unable to take by mouth medications at this time due to NG tube and anticipation of surgery. Tachycardia is multifactorial including anemia and abdominal pain. Would like to continue patient's beta junior therapy, so will add IV metoprolol until able to take by mouth medications again. This inpt stay is expected to cross 2 MNs from start of care Yes at 0832
--- NOTE | 2016-11-30 08:33 | ACUTE CARE PROGRESS NOTE (QUA) ---
Progress Notes Subjective Date 11/30/16 Time 0823 Note 76-year-old white male in bed in no acute distress. Patient does relate some increasing abdominal discomfort this morning and nausea. He denies any vomiting. Denies any chest pain. Denies any flatus or bowel movement. Objective Findings Last VS-Temp:97.8 B/P:135/79 Pulse:121 Resp:18 SaO2:93 ROOM AIR Last weight lbs:154 oz:1 K.882 Method:Bed Scales Exam General appearance: alert, awake Cardiovascular: tachycardia Respiratory: clear to auscultation Reviewed: medications, vital signs, lab results Assessment/Plan Problem List 1. SBO (small bowel obstruction) Status: Acute 2. Anemia Status: Chronic Qualifiers: Anemia type: unspecified type Qualified Code: D64.9 - Anemia, unspecified 3. Weakness Status: Chronic 4. Lung cancer Status: Chronic 5. Rheumatoid arthritis Status: Chronic 6. GERD (gastroesophageal reflux disease) Status: Chronic 7. Coronary artery disease Status: Chronic Qualifiers: Coronary Disease-Associated Artery/Lesion type: [place] artery [place] vs. transplanted heart: [place] heart Associated angina: without angina Qualified Code: I25.10 - Atherosclerotic heart disease of [place] coronary artery without angina pectoris 8. Hypertension Status: Chronic Patient condition Guarded Plan: Cardiac status stable. Patient unable to take by mouth medications at this time due to NG tube and anticipation of surgery. Tachycardia is multifactorial including anemia and abdominal pain. Would like to continue patient's beta junior therapy, so will add IV metoprolol until able to take by mouth medications again. This inpt stay is expected to cross 2 MNs from start of care Yes at 0832
--- NOTE | 2016-11-30 08:59 | ACUTE CARE PROGRESS NOTE (QUA) ---
Progress Notes Subjective Date 11/30/16 Time 0852 Note Not passing gas. Some pain requiring morphine. Worried about recovery with regard to scheduled trip to [facility] 12/21. Objective Findings Last VS-Temp:97.8 B/P:135/79 Pulse:121 Resp:18 SaO2:93 ROOM AIR Laboratory Tests 11/30/16 0630: Sodium 137, Potassium 4.6, Chloride 104, Carbon Dioxide 25, BUN 23 H, Creatinine 1.4 H, Estimated Creat Clear 44 L, Estimated GFR (MDRD) 49, Glucose 75, Calcium 8.9, Total Bilirubin 1.0, AST 13 L, ALT 11 L, Alkaline Phosphatase 126 H, Total Protein 5.8 L, Albumin 2.2 L, Globulin 3.6 H, Albumin/Globulin Ratio 0.6 L, WBC 9.0, RBC 3.20 L, Hgb 9.6 L, Hct 29.9 L, MCV 93.6, RDW 14.8, Plt Count 233, MPV 9.7, Gran % 81.6 H, Gran # 7.3, Lymphocytes % 11.4, Monocytes % 5.0, Eosinophils % 1.6, Basophils % 0.3, Lymphocytes # 1.0, Monocytes # 0.5, Eosinophils # 0.1, Basophils # 0.0, PUBS MCHC 32.1, MCH 30.1 Last weight lbs:154 oz:1 K.882 Method:Bed Scales Exam General appearance: alert, no acute distress Eyes: anicteric, PERRLA ENT: mucous membranes moist Cardiovascular: regular rate & rhythm Respiratory: aerating well, basilar rales (worse right) ABD: soft, bowel sounds present (with tube clamped), guarding (at scar) Extremities: no peripheral edema Musculoskeletal: equal muscle strength, joint pain, joint swelling Skin: dry, intact Neuro: oriented, speech clear Reviewed: medications, vital signs, lab results, radiology report, consult note Assessment/Plan Problem List 1. SBO (small bowel obstruction) Status: Acute 2. Anemia Status: Chronic 3. Weakness Status: Chronic 4. Lung cancer Status: Chronic 5. Rheumatoid arthritis Status: Chronic 6. GERD (gastroesophageal reflux disease) Status: Chronic 7. Coronary artery disease Status: Chronic 8. Hypertension Status: Chronic Patient condition Guarded Plan: continue current care, per Dr. Callahan This inpt stay is expected to cross 2 MNs from start of care Yes at 0881
[2016-11-30 10:09] LABS: ABO BLOOD TYPE O; RH BLOOD TYPE POSITIVE
[2016-11-30 10:40] LABS: ANTIHUMAN GLOB CROSSMATCH COMPAT
--- NOTE | 2016-11-30 11:48 | RADIOLOGY REPORT PS360 ---
ABD ACUTE(MUL VIEWS) HISTORY: bowel obstruction ORDERING PHYSICIAN: Justine Hunter MD PATIENT AGE: 76 years COMPARISON: 11/29/2016 FINDINGS: Frontal view of the chest once again shows a cavitary lesion in the right upper hemithorax laterally with an air-fluid level with moderate pleural parenchymal thickening on the right. A nasogastric tube has been inserted with the tip in the region of the undersurface of the stomach. Scattered air-fluid levels are once again noted in the small bowel consistent with at least partial small bowel obstruction overall not significant change compared to the previous exam. No free air evident. IMPRESSION: 1. Overall no change partial small bowel structure. 2. Interval insertion of nasogastric tube. 3. No change right-sided pulmonary cavitary lesion with pleural parenchymal thickening
--- NOTE | 2016-11-30 15:18 | Operative Note ---
Surgeon/Diagnoses Surgeon/Auto Body Repair Estimator(s) Date of procedure: 11/30/16 Surgeon: Nabil Callahan Auto Body Repair Estimator(s): Richard De La Cruz M.D. Diagnoses Pre-op diagnosis: Small bowel obstruction Post-op diagnosis Same Procedure Procedure Procedure: Exploratory laparotomy with lysis of adhesions and freeing of intestinal obstruction Indications: BERRY ROSAS is a 76 year-old Male. He does undergone prior abdominal surgery, particularly laparoscopic ventral hernia repair many years ago. He was in his usual state of health until morning of 11/28/16 at which time he developed quite severe abdominal pain and some associating vomiting. He had vomited food via the the day before. He presented to the emergency department in the evening of 11/28/16 and had clinical symptoms consistent with an radiographic evidence of mechanical bowel obstruction. He was admitted for inpatient management and surgical consultation was obtained the following day. He continues to have episodes of pain and vomiting and therefore a nasogastric tube was placed. He had an appreciable amount of output from nasogastric tube and continued to have episodic pain with some minor nausea without passage of flatus. Follow-up acute abdominal series revealed no improvement in bowel obstruction and plan was made for operative intervention. Findings: Small bowel obstruction secondary to adhesions from prior surgery. Procedure Description: Consent was obtained and patient was taken to the operating room. He was given preoperative intravenous antibiotics. In the operating room he was placed in a supine position. Colón catheter was placed by nursing staff after induction of general anesthesia via endotracheal tube. Abdomen was prepped and draped in standard surgical fashion. Limited midline laparotomy incision was made and dissection was carried down through subcutaneous tissues to the fascia. Fascia was incised and the peritoneal cavity was carefully entered. There was significant inflammatory response around previously placed mesh. Peritoneum was entered inferior to the mesh and exposure was achieved. There were a couple loops of small bowel which were densely adherent to the mesh and these were taken down with blunt dissection and some use of careful Metzenbaum dissection. Distal to this the bowel was decompressed and approximately it was distended consistent with obstruction. Several of the tacks which were used to place the mesh were removed. Any easily visualized and palpable Pro-Tacks were removed. Small bowel was then "run" in its entirety from the ligament of Treitz to terminal ileum. Small bowel which was adherent was inspected and found to be viable without the need for resection. Nasogastric tube was palpated and manipulated into the antrum as it was high in the fundus. Small bowel was returned to the normal anatomic position. There was some omentum adherent to the mesh and this was actually secured to the mesh so as to cover it with a couple of Vicryl sutures. Fascia was then closed with running number 2 Novofil 2. Skin was closed with jerald. Clean dry sterile dressing was applied. EBL (ml): 50 Anesthesia: GETA Complications: None immediately apparent Specimens: None Disposition Disposition: To PACU at 1427
--- NOTE | 2016-11-30 15:34 | Anesthesia Record ---
Anesthesia Record Part I Total IV fluids: 800 EBL (ml): 25 Urine Output: 60 B/P: 175/89 % SaO2: 92 Pulse: 79 Resps: 16 Temp: 97.2 Patient is: Drowsy, Stable Stable to PACU at: 1517 at 1534
--- NOTE | 2016-11-30 15:36 | Anesthesia Record ---
Anesthesia Record Part II Discharge time: 1547 Destination: Second Floor PACU nurse assessment review? Yes Patient is: Stable Anesthesia complications? No at 1820
[2016-11-30 18:33] LABS: URINE BLOOD NEGATIVE (NEG)
[2016-11-30 18:52] LABS: URINE BILIRUBIN - DIPSTICK 2+ (NEG)
--- NOTE | 2016-11-30 19:25 | ACUTE CARE PROGRESS NOTE (QUA) ---
Progress Notes Subjective Date 11/30/16 Time 1916 Note Doing well this PM post-op! Joking, alert. NAD Objective Findings Last VS-Temp:98.0 B/P:144/89 Pulse:77 Resp:18 SaO2:95 OXYGEN Last weight lbs:154 oz:1 K.882 Method:Bed Scales Exam Respiratory: no respiratory distress ABD: non-distended Genitourinary: catheter in place Extremities: no peripheral edema Skin: dry, intact Neuro: oriented, speech clear Assessment/Plan Problem List 1. SBO (small bowel obstruction) Status: Acute 2. Anemia Status: Chronic 3. Weakness Status: Chronic 4. Lung cancer Status: Chronic 5. Rheumatoid arthritis Status: Chronic 6. GERD (gastroesophageal reflux disease) Status: Chronic 7. Coronary artery disease Status: Chronic 8. Hypertension Status: Chronic Patient condition Improving Plan: continue current care This inpt stay is expected to cross 2 MNs from start of care Yes at 1925
[2016-12-01] VITALS (20 sets, daily range): BP systolic 102–171; BP diastolic 52–99
--- NOTE | 2016-12-01 07:38 | SURGEON PROGRESS NOTE ---
Subjective data Subjective data: BERRY ROSAS is a 76 M .Patient denies complaint of nausea and vomitting.He reports his last pain level as 0 on a 0-10 pain scale. No major complaints Some soreness with excessive moving and coughing. Assessment findings Assessment Exam General appearance: normal appearance, alert ABD: soft Patient plan Plan: Ambulate, IV fluids, Up in chair at 0737
[2016-12-01 08:11] LABS: HEMOGLOBIN 8.7 g/dL (14.1-18.0)
--- NOTE | 2016-12-01 08:18 | ACUTE CARE PROGRESS NOTE (QUA) ---
Progress Notes Subjective Date 12/01/16 Time 0816 Note 76 yo WM in bed in NAD. Telling jokes. Some abdominal soreness but feeling better. Objective Findings Last VS-Temp:98.4 B/P:126/72 Pulse:68 Resp:18 SaO2:93 ROOM AIR Last weight lbs:157 oz:9 K.469 Method:Bed Scales Exam General appearance: alert, awake Cardiovascular: regular rate & rhythm Respiratory: clear to auscultation Reviewed: medications, vital signs, lab results Assessment/Plan Problem List 1. SBO (small bowel obstruction) Status: Acute Assessment/Plan: s/p surgery. NG tube in place 2. Anemia Status: Chronic Qualifiers: Anemia type: unspecified type Qualified Code: D64.9 - Anemia, unspecified 3. Weakness Status: Chronic 4. Lung cancer Status: Chronic 5. Rheumatoid arthritis Status: Chronic 6. GERD (gastroesophageal reflux disease) Status: Chronic 7. Coronary artery disease Status: Chronic Assessment/Plan: clinically stable. continue IV metoprolol and PRN enalaprilat until taking PO. Qualifiers: Coronary Disease-Associated Artery/Lesion type: [place] artery [place] vs. transplanted heart: [place] heart Associated angina: without angina Qualified Code: I25.10 - Atherosclerotic heart disease of [place] coronary artery without angina pectoris 8. Hypertension Status: Chronic Patient condition Stable Plan: continue current care This inpt stay is expected to cross 2 MNs from start of care Yes at 0818
--- NOTE | 2016-12-01 08:18 | ACUTE CARE PROGRESS NOTE (QUA) ---
Progress Notes Subjective Date 12/01/16 Time 0816 Note 76 yo WM in bed in NAD. Telling jokes. Some abdominal soreness but feeling better. Objective Findings Last VS-Temp:98.4 B/P:126/72 Pulse:68 Resp:18 SaO2:93 ROOM AIR Last weight lbs:157 oz:9 K.469 Method:Bed Scales Exam General appearance: alert, awake Cardiovascular: regular rate & rhythm Respiratory: clear to auscultation Reviewed: medications, vital signs, lab results Assessment/Plan Problem List 1. SBO (small bowel obstruction) Status: Acute Assessment/Plan: s/p surgery. NG tube in place 2. Anemia Status: Chronic Qualifiers: Anemia type: unspecified type Qualified Code: D64.9 - Anemia, unspecified 3. Weakness Status: Chronic 4. Lung cancer Status: Chronic 5. Rheumatoid arthritis Status: Chronic 6. GERD (gastroesophageal reflux disease) Status: Chronic 7. Coronary artery disease Status: Chronic Assessment/Plan: clinically stable. continue IV metoprolol and PRN enalaprilat until taking PO. Qualifiers: Coronary Disease-Associated Artery/Lesion type: [place] artery [place] vs. transplanted heart: [place] heart Associated angina: without angina Qualified Code: I25.10 - Atherosclerotic heart disease of [place] coronary artery without angina pectoris 8. Hypertension Status: Chronic Patient condition Stable Plan: continue current care This inpt stay is expected to cross 2 MNs from start of care Yes at 0818
--- NOTE | 2016-12-01 09:25 | ACUTE CARE PROGRESS NOTE (QUA) ---
Progress Notes Subjective Date 12/01/16 Time 0755 Note Pt sitting up in bed with family at bedside. He denies any nausea and jokes repeatedly that he would like to have cup of coffee. He reports minimal discomfort at midline abdominal incision, otherwise is without complaint. Objective Findings Laboratory Tests 12/01/16 0745: WBC 10.4, RBC 2.90 L, Hgb 8.7 L, Hct 26.9 L, MCV 92.7, RDW 14.7, Plt Count 233, MPV 9.3, Gran % 84.8 H, Gran # 8.8 H, Lymphocytes % 10.0, Monocytes % 4.7 , Eosinophils % 0.3, Basophils % 0.1, Lymphocytes # 1.0, Monocytes # 0.5, Eosinophils # 0.0, Basophils # 0.0, PUBS MCHC 32.5, MCH 30.1 11/30/16 1337: Urine Color YELLOW, Urine Appearance CLEAR, Urine pH 5.5, Ur Specific [place] >= 1.030, Urine Protein NEGATIVE, Urine Ketones 2+ H, Urine Blood NEGATIVE, Urine Nitrate NEGATIVE, Urine Bilirubin 2+ H, Urine Urobilinogen 1.0, Ur Leukocyte Esterase NEGATIVE, Urine RBC OCC, Urine WBC 3-5, Ur Squamous Epith Cells NONE, Urine Bacteria 1+, Hyaline Casts OCC, Urine Glucose NEGATIVE 11/30/16 0930: Antibody Screen NEGATIVE, Miscellaneous Test POSITIVE Vital Signs Date Time Temp Pulse Resp B/P Pulse O2 O2 Flow FiO2 Ox Delivery Rate 12/01 0700 68 18 126/72 93 ROOM AIR 12/01 0600 113 20 128/81 94 ROOM AIR 12/01 0500 77 20 157/83 92 ROOM AIR 12/01 0430 98.4 71 18 135/71 92 12/01 0414 98.4 12/01 0400 98.4 70 22 144/73 94 ROOM AIR 12/01 0300 75 20 122/67 93 ROOM AIR 12/01 0200 70 18 102/52 94 ROOM AIR 12/01 0100 77 18 121/63 94 ROOM AIR 12/01 0006 97.9 12/01 0000 97.9 118 20 124/67 94 ROOM AIR 11/30 2300 74 18 114/63 94 ROOM AIR 11/30 2245 97.8 81 20 108/70 96 11/30 2145 97.7 74 20 102/63 94 09/20 2045 97.6 139 20 104/64 96 /1999 97.6 81 18 129/75 95 / 1945 97.6 81 20 143/77 94 11/30 1942 97.6 11/30 1900 82 20 142/55 95 ROOM AIR 11/30 1845 98.0 77 18 144/89 95 / 1815 98.5 71 18 129/84 95 / 1745 98.1 73 18 139/84 94 11/30 1715 97.6 81 18 145/85 98 / 1700 2 11/30 1645 98.2 82 18 165/94 97 11/30 1630 98.0 82 18 180/94 96 11/30 1628 97.2 11/30 1615 97.9 80 18 170/92 97 11/30 1609 16 11/30 1609 121 18 135/79 93 / 1600 98.1 82 18 177/94 96 / 1547 97.5 79 16 179/88 98 OXYGEN 11/30 1545 16 11/30 1537 77 16 169/88 96 OXYGEN 11/30 1535 16 11/30 1534 97.2 79 16 175/89 92 11/30 1527 77 16 168/83 96 OXYGEN 11/30 1525 16 11/30 1517 97.2 79 16 175/89 92 ROOM AIR 11/30 1024 18 Last VS-Temp:98.4 B/P:126/72 Pulse:68 Resp:18 SaO2:93 ROOM AIR Last weight lbs:157 oz:9 K.469 Method:Bed Scales 11/30/16 Acute Abdomen Series: IMPRESSION: 1. Overall no change partial small bowel structure. 2. Interval insertion of nasogastric tube. 3. No change right-sided pulmonary cavitary lesion with pleural parenchymal thickening. Exam General appearance: alert, awake, no acute distress Cardiovascular: regular rate & rhythm, normal peripheral pulses Respiratory: CTAB A&P ABD: non-distended, no rebound, soft, no guarding, bowel sounds present, ttp throughout with midline dressing C/D/I Genitourinary: nina catheter in place draining clear, yellow urine Extremities: moves all, no peripheral edema, warm, no calf tenderness, bilateral TERRY hose and SCUDs in place Neuro: alert, oriented, speech clear, no focal deficit Reviewed: medications, vital signs, lab results, radiology report, consult note, nursing notes Assessment/Plan Problem List 1. SBO (small bowel obstruction) Status: Acute 2. Anemia Status: Chronic 3. Weakness Status: Chronic 4. Lung cancer Status: Chronic 5. Rheumatoid arthritis Status: Chronic 6. GERD (gastroesophageal reflux disease) Status: Chronic 7. Coronary artery disease Status: Chronic 8. Hypertension Status: Chronic Patient condition Improving Plan: per surgery This inpt stay is expected to cross 2 MNs from start of care Yes at 0911
[2016-12-02] VITALS (40 sets, daily range): BP systolic 102–183; BP diastolic 53–117
[2016-12-02 05:20] LABS: HEMOGLOBIN 8.7 g/dL (14.1-18.0); LYMPH # 1.1 K/mm3 (0.7-4.5); LYMPH % 13.1 % (10-50)
--- NOTE | 2016-12-02 08:08 | ACUTE CARE PROGRESS NOTE (QUA) ---
See Addendum Progress Notes Subjective Date 12/02/16 Time 0807 Note Clinically he seems stable but his heart rate has varied and has been as high as 130. He is receiving metoprolol tartrate 50 mg twice a day. Nursing has been in communication with William Workman PA-C. He ordered 5 mg metoprolol IV this morning. He is considering increasing the by mouth metoprolol tartrate 200 mg by mouth twice a day. Patient is also taking carvedilol. Patient/family reports: no complaints Objective Findings Laboratory Tests 12/02/16 0500: Creatine Kinase 89, CK-MB (CK-2) Rel Index 1.1, CK and CKMB Interp 1.0, Troponin I 0.12 H 12/02/16 0500: Sodium 136, Potassium 3.6, Chloride 103, Carbon Dioxide 28, BUN 22 H, Creatinine 1.2, Estimated Creat Clear 52, Estimated GFR (MDRD) 59, Glucose 85, Calcium 8.6, WBC 8.2, RBC 2.84 L, Hgb 8.7 L, Hct 26.1 L, MCV 91.7, RDW 14.8, Plt Count 203, MPV 9.2, Gran % 78.3, Gran # 6.4, Lymphocytes % 13.1, Monocytes % 6.7, Eosinophils % 1.7, Basophils % 0.1, Lymphocytes # 1.1, Monocytes # 0.6, Eosinophils # 0.1, Basophils # 0.0, PUBS MCHC 33.3, MCH 30.6 Last VS-Temp:98.3 B/P:139/98 Pulse:86 Resp:22 SaO2:91 ROOM AIR Last weight lbs:153 oz:3 K.485 Method:Bed Scales Exam General appearance: alert, no acute distress Eyes: anicteric ENT: mucous membranes moist Cardiovascular: sinus rhythm but with variability and rate sometimes up to 130. He shows occasional PVCs on the monitor. He is asymptomatic but is aware of palpitations. Respiratory: clear to auscultation, good air movement, no respiratory distress ABD: soft, dressing in place Extremities: no peripheral edema Musculoskeletal: equal muscle strength Skin: dry, intact Neuro: alert, oriented, speech clear Reviewed: medications, vital signs, lab results, radiology report Assessment/Plan Problem List 1. SBO (small bowel obstruction) Status: Acute 2. Anemia Status: Chronic 3. Weakness Status: Chronic 4. Lung cancer Status: Chronic 5. Rheumatoid arthritis Status: Chronic 6. GERD (gastroesophageal reflux disease) Status: Chronic 7. Coronary artery disease Status: Chronic 8. Hypertension Status: Chronic Plan: metoprolol 5 mg IV. Consider increasing carvedilol dose. This inpt stay is expected to cross 2 MNs from start of care Yes at 0807
--- NOTE | 2016-12-02 08:51 | SURGEON PROGRESS NOTE ---
Subjective data Subjective data: BERRY ROSAS is a 76 M .Patient denies complaint of nausea and vomitting.He reports his last pain level as 0 on a 0-10 pain scale. Patient without any complaints. Ambulating, chewing gum. Still no flatus. Had had some transient elevated heart rate 130-140 without chest pain. Assessment findings Assessment Exam General appearance: normal appearance, alert ABD: soft Patient plan Plan: IV fluids, DC Colón at 0850
--- NOTE | 2016-12-02 09:34 | ACUTE CARE PROGRESS NOTE (QUA) ---
See Addendum Progress Notes Subjective Date 12/02/16 Time 0928 Note 76 yo WM in bed in NAD. Some abdominal soreness. Occassional palpitations but no chest pains. Telemetry shows PVC's, Couplets and what appears to be non- sustained SVT with rates between 120-140 bpm. Pt is asymptomatic when they occur. Objective Findings Last VS-Temp:98.3 B/P:164/90 Pulse:100 Resp:20 SaO2:92 ROOM AIR Last weight lbs:153 oz:3 K.485 Method:Bed Scales Exam General appearance: alert, awake, no acute distress Cardiovascular: regular rate & rhythm Respiratory: clear to auscultation Reviewed: medications, vital signs, lab results Assessment/Plan Problem List 1. SBO (small bowel obstruction) Status: Acute 2. Anemia Status: Chronic Qualifiers: Anemia type: unspecified type Qualified Code: D64.9 - Anemia, unspecified 3. Weakness Status: Chronic 4. Lung cancer Status: Chronic 5. Rheumatoid arthritis Status: Chronic 6. GERD (gastroesophageal reflux disease) Status: Chronic 7. Coronary artery disease Status: Chronic Qualifiers: Coronary Disease-Associated Artery/Lesion type: [place] artery [place] vs. transplanted heart: [place] heart Associated angina: without angina Qualified Code: I25.10 - Atherosclerotic heart disease of [place] coronary artery without angina pectoris 8. Hypertension Status: Chronic 9. Paroxysmal SVT (supraventricular tachycardia) Assessment/Plan: Will increase metoprolol to 100 mg BID for suppression. 10. Cardiomyopathy Assessment/Plan: Continue metoprolol and restart low dose ELLY as tolerated. Qualifiers: Cardiomyopathy type: ischemic Qualified Code: I25.5 - Ischemic cardiomyopathy Patient condition Stable Plan: see above. This inpt stay is expected to cross 2 MNs from start of care Yes at 0937
--- NOTE | 2016-12-02 09:34 | ACUTE CARE PROGRESS NOTE (QUA) ---
See Addendum Progress Notes Subjective Date 12/02/16 Time 0928 Note 76 yo WM in bed in NAD. Some abdominal soreness. Occassional palpitations but no chest pains. Telemetry shows PVC's, Couplets and what appears to be non- sustained SVT with rates between 120-140 bpm. Pt is asymptomatic when they occur. Objective Findings Last VS-Temp:98.3 B/P:164/90 Pulse:100 Resp:20 SaO2:92 ROOM AIR Last weight lbs:153 oz:3 K.485 Method:Bed Scales Exam General appearance: alert, awake, no acute distress Cardiovascular: regular rate & rhythm Respiratory: clear to auscultation Reviewed: medications, vital signs, lab results Assessment/Plan Problem List 1. SBO (small bowel obstruction) Status: Acute 2. Anemia Status: Chronic Qualifiers: Anemia type: unspecified type Qualified Code: D64.9 - Anemia, unspecified 3. Weakness Status: Chronic 4. Lung cancer Status: Chronic 5. Rheumatoid arthritis Status: Chronic 6. GERD (gastroesophageal reflux disease) Status: Chronic 7. Coronary artery disease Status: Chronic Qualifiers: Coronary Disease-Associated Artery/Lesion type: [place] artery [place] vs. transplanted heart: [place] heart Associated angina: without angina Qualified Code: I25.10 - Atherosclerotic heart disease of [place] coronary artery without angina pectoris 8. Hypertension Status: Chronic 9. Paroxysmal SVT (supraventricular tachycardia) Assessment/Plan: Will increase metoprolol to 100 mg BID for suppression. 10. Cardiomyopathy Assessment/Plan: Continue metoprolol and restart low dose ELLY as tolerated. Qualifiers: Cardiomyopathy type: ischemic Qualified Code: I25.5 - Ischemic cardiomyopathy Patient condition Stable Plan: see above. This inpt stay is expected to cross 2 MNs from start of care Yes at 0937
[2016-12-02 14:37] LABS: ANTIHUMAN GLOB CROSSMATCH COMPAT
--- NOTE | 2016-12-02 15:12 | ACUTE CARE PROGRESS NOTE (QUA) ---
Progress note: - Patient without any complaints. Pain has been well controlled. Ambulating some. Intermittent tachycardia. Cardiology increased potassium. Patient to receive blood due to cardiac history and anemia. Still with high NG output. at 1511
[2016-12-02 21:07] LABS: HEMOGLOBIN 10.5 g/dL (14.1-18.0)
[2016-12-03] VITALS (32 sets, daily range): BP systolic 86–179; BP diastolic 52–113
--- NOTE | 2016-12-03 09:50 | POST-OP PROGRESS NOTE ---
Post Op Subjective Data Patient is post-op day 3 Subjective data: Feels "OK". No flatus. Post op objective data Vitals,I&O,and Labs: Vital signs, intake and output,and available lab data for the last 24 hours is as noted below. Vital Signs Date Time Temp Pulse Resp B/P Pulse O2 O2 Flow FiO2 Ox Delivery Rate 12/03 0702 73 20 145/80 91 ROOM AIR 12/03 0600 74 24 139/63 92 ROOM AIR 12/03 0536 98.6 76 19 123/64 90 12/03 0510 98.6 76 19 123/64 90 12/03 0437 26 12/03 0400 70 21 124/63 92 ROOM AIR 12/03 0300 91 21 126/77 92 ROOM AIR 12/03 0200 71 18 134/68 90 ROOM AIR 12/03 0100 97.6 68 21 128/83 90 ROOM AIR 12/03 0000 60 20 138/69 92 ROOM AIR 12/02 2300 65 135/70 92 ROOM AIR 12/02 2245 65 28 102/53 93 12/02 2200 76 22 116/60 90 ROOM AIR 12/02 2100 70 28 160/92 94 ROOM AIR 12/02 2040 98.5 89 20 149/87 12/02 2000 98.4 83 28 134/74 94 12/02 1940 98.3 74 17 140/82 12/02 1915 98.5 80 22 131/75 12/02 1815 99.0 145 20 177/110 12/02 1809 136 12/02 1800 98.4 94 20 178/105 12/02 1745 99.0 77 18 168/99 12/02 1730 98.7 75 21 158/85 12/02 1725 98.7 89 18 154/89 12/02 1720 98.9 75 20 155/98 12/02 1715 98.3 74 18 158/102 12/02 1640 97.7 80 20 161/87 12/02 1630 133 12/02 1625 98.1 92 20 177/109 12/02 1607 98.6 78 18 183/95 95 12/02 1600 98.1 86 18 182/107 94 12/02 1550 141 12/02 1525 98.6 78 18 183/95 12/02 1515 138 12/02 1510 98.2 97 18 178/117 12/02 1455 98.2 80 21 148/81 12/02 1440 98.9 83 17 158/91 12/02 1435 99.1 81 19 144/93 12/02 1430 99.0 80 20 148/87 12/02 1425 98.6 83 20 163/96 12/02 1400 97.9 81 18 136/87 93 12/02 1300 97.8 79 16 142/76 95 ROOM AIR 12/02 1200 97.4 80 18 145/82 91 12/02 1200 97.4 80 18 145/82 91 ROOM AIR 12/02 1100 97.9 82 18 173/91 94 ROOM AIR 12/02 1000 98.5 75 16 122/69 93 12/02 1000 98.5 75 16 122/69 93 ROOM AIR 12/02 1500 12/02 2300 12/03 0700 Intake Total 20 2162 1157 Output Total 150 930 775 Balance -130 1232 382 Intake, IV 1991 1157 Intake, Oral 0 150 Intake, Tube 20 20 Irrigant Output, Other 800 200 Output, Urine 150 130 575 Patient 74.417 kg Weight Laboratory Tests Test Result Date Time Chemistry Sodium (mmoL/L) 136 12/02 0500 Potassium (mmoL/L) 3.6 12/02 0500 Chloride (mmoL/L) 103 12/02 0500 Carbon Dioxide (mmoL/L) 28 12/02 0500 BUN (mg/dL) 22 12/02 0500 Creatinine (mg/dL) 1.2 12/02 0500 Estimated Creat Clear (ML/MIN) 52 12/02 0500 Estimated GFR (MDRD) (ML/MIN) 59 12/02 0500 Glucose (mg/dL) 85 12/02 0500 Lactic Acid (mmol/L) 2.0 11/28 2100 Calcium (mg/dL) 8.6 12/02 0500 Magnesium (mg/dL) 1.8 12/02 0500 Total Bilirubin (mg/dL) 1.0 11/30 0630 AST (U/L) 13 11/30 0630 ALT (U/L) 11 11/30 0630 Alkaline Phosphatase (U/L) 126 11/30 0630 Creatine Kinase (U/L) 89 12/02 0500 CK-MB (CK-2) Rel Index (U/L) 1.1 12/02 0500 CK and CKMB Interp (ng/mL) 1.0 12/02 0500 Troponin I (ng/mL) 0.12 12/02 050 Total Protein (gm/dL) 5.8 11/30 629 Albumin (gm/dL) 2.2 11/30 629 Globulin (gm/dL) 3.6 11/30 629 Albumin/Globulin Ratio 0.6 11/30 629 Amylase (U/L) 51 11/28 185 Lipase (U/L) 88 11/28 185 Hematology WBC (K/MM3) 8.2 12/02 050 RBC (M/mm3) 2.84 12/02 050 Hgb (g/dL) 10.5 12/03 2039 Hct (%) 31.9 12/03 2039 MCV (fl) 91.7 12/02 050 RDW (%) 14.8 12/02 050 Plt Count (K/mm3) 203 12/02 050 MPV (fl) 9.2 12/02 050 Gran % (%) 78.3 12/02 0500 Gran # (K/mm3) 6.4 12/02 0500 Lymphocytes % (%) 13.1 12/02 0500 Monocytes % (%) 6.7 12/02 0500 Eosinophils % (%) 1.7 12/02 0500 Basophils % (%) 0.1 12/02 0500 Lymphocytes # (K/mm3) 1.1 12/02 0500 Monocytes # (K/mm3) 0.6 12/02 0500 Eosinophils # (K/mm3) 0.1 12/02 0500 Basophils # (K/MM3) 0.0 12/02 499 PUBS MCHC (g/dl) 33.3 12/02 499 Immunology Antibody Screen NEGATIVE 11/30 929 MCH (pg) 30.6 12/02 499 Miscellaneous Miscellaneous Test POSITIVE 11/30 929 Misc Test Units 12/02 170 Urines Urine Color YELLOW 11/30 1336 Urine Appearance CLEAR 11/30 1336 Urine pH 5.5 11/30 1336 Ur Specific [place] >= 1.030 11/30 1336 Urine Protein (mg/dL) NEGATIVE 11/30 1336 Urine Ketones (mg/dL) 2+ 11/30 1336 Urine Blood NEGATIVE 11/30 1336 Urine Nitrate NEGATIVE 11/30 1336 Urine Bilirubin 2+ 09/20 1337 Urine Urobilinogen (E.U./dL) 1.0 11/30 1337 Ur Leukocyte Esterase NEGATIVE 11/30 1337 Urine RBC (rbc/hpf) OCC 11/30 1337 Urine WBC (wbc/hpf) 3-5 11/30 1337 Ur Squamous Epith Cells (#/hpf) NONE 11/30 1337 Urine Bacteria 1+ 11/30 1337 Hyaline Casts (#/lpf) OCC 11/30 1337 Urine Mucus 1+ 11/28 1850 Urine Glucose NEGATIVE 11/30 1337 Additional data: declining NG output over last shift Physical Exam VS/I&O Vital Signs Date Time Temp Pulse Resp B/P Pulse O2 O2 Flow FiO2 Ox Delivery Rate 12/03 0702 73 20 145/80 91 ROOM AIR 12/03 0600 74 24 139/63 92 ROOM AIR 12/03 0536 98.6 76 19 123/64 90 12/03 0510 98.6 76 19 123/64 90 12/03 0437 26 12/03 0400 70 21 124/63 92 ROOM AIR 12/03 0300 91 21 126/77 92 ROOM AIR 12/03 0200 71 18 134/68 90 ROOM AIR 12/03 0100 97.6 68 21 128/83 90 ROOM AIR 12/03 0000 60 20 138/69 92 ROOM AIR 12/02 2300 65 135/70 92 ROOM AIR 12/02 2245 65 28 102/53 93 12/02 2200 76 22 116/60 90 ROOM AIR 12/02 2100 70 28 160/92 94 ROOM AIR 12/02 2040 98.5 89 20 149/87 12/02 2000 98.4 83 28 134/74 94 12/02 1940 98.3 74 17 140/82 12/02 1915 98.5 80 22 131/75 12/02 1815 99.0 145 20 177/110 12/02 1809 136 12/02 1800 98.4 94 20 178/105 12/02 1745 99.0 77 18 168/99 12/02 1730 98.7 75 21 158/85 12/02 1725 98.7 89 18 154/89 12/02 1720 98.9 75 20 155/98 12/02 1715 98.3 74 18 158/102 12/02 1640 97.7 80 20 161/87 12/02 1630 133 12/02 1625 98.1 92 20 177/109 12/02 1607 98.6 78 18 183/95 95 / 1600 98.1 86 18 182/107 94 12/02 1550 141 12/02 1525 98.6 78 18 183/95 12/02 1515 138 12/02 1510 98.2 97 18 178/117 12/02 1455 98.2 80 21 148/81 12/02 1440 98.9 83 17 158/91 12/02 1435 99.1 81 19 144/93 12/02 1430 99.0 80 20 148/87 12/02 1425 98.6 83 20 163/96 12/02 1400 97.9 81 18 136/87 93 12/02 1300 97.8 79 16 142/76 95 ROOM AIR 12/02 1200 97.4 80 18 145/82 91 12/02 1200 97.4 80 18 145/82 91 ROOM AIR 12/02 1100 97.9 82 18 173/91 94 ROOM AIR 12/02 1000 98.5 75 16 122/69 93 12/02 1000 98.5 75 16 122/69 93 ROOM AIR I&O 12/03 0700 Intake Total 3339 Output Total 1855 Balance 1484 Intake, IV 3149 Intake, Oral 150 Intake, Tube 40 Irrigant Output, Other 1000 Output, Urine 855 Patient 74.417 kg Weight Exam General appearance no acute distress Respiratory no distress Cardiovascular regular rate and rhythm Abdomen soft (incision c/d/i) Findings/Data NG not "sumping"...improved with irrigation. Post op patient plan Diagnoses: post-op ileus NOTE: declining NG output may be due to occlusion Plan: Ambulate, DVT prophylaxis, rare ice chips This inpt stay is expected to cross 2 MNs from start of care Yes Additional data: NG to drain for ambulation. at 0950
--- NOTE | 2016-12-03 12:00 | ACUTE CARE PROGRESS NOTE (QUA) ---
See Addendum Progress Notes Subjective Date 12/03/16 Time 1157 Note Last evening the patient developed supraventricular tachycardia that required administration of diltiazem IV. This morning his rhythm and rate are stable. I can tell that he doesn't feel as well this morning as he usually does. He states that he has passed some gas. His NG tube is still in place. Objective Findings Last VS-Temp:97.9 B/P:143/78 Pulse:77 Resp:20 SaO2:93 ROOM AIR Last weight lbs:164 oz:1 K.417 Method:Bed Scales Exam General appearance: alert, no acute distress Eyes: anicteric, conjunctiva clear, PERRLA ENT: mucous membranes moist Cardiovascular: regular rate & rhythm Respiratory: clear to auscultation ABD: soft, bowel sounds present (NG suction) Genitourinary: he states he is having difficulty voiding. He did have a catheter which has been removed. Extremities: no peripheral edema Skin: dry, intact Neuro: no deficit Reviewed: medications, vital signs, lab results Assessment/Plan Problem List 1. SBO (small bowel obstruction) Status: Acute 2. Anemia Status: Chronic 3. Weakness Status: Chronic 4. Lung cancer Status: Chronic 5. Rheumatoid arthritis Status: Chronic 6. GERD (gastroesophageal reflux disease) Status: Chronic 7. Coronary artery disease Status: Chronic 8. Hypertension Status: Chronic 9. Paroxysmal SVT (supraventricular tachycardia) 10. Cardiomyopathy 11. Dysuria Plan: gradually switch to oral diltiazem. Tamsulosin for his prostate. This inpt stay is expected to cross 2 MNs from start of care Yes at 1200
[2016-12-04] VITALS (26 sets, daily range): BP systolic 98–157; BP diastolic 58–93
--- NOTE | 2016-12-04 09:27 | POST-OP PROGRESS NOTE ---
Post Op Subjective Data Patient is post-op day 4 Subjective data: Feels "a bit bad" and "a little short of breath". + flatus yesterday. Per nursing, O2 sats have "been fine". Post op objective data Vitals,I&O,and Labs: Vital signs, intake and output,and available lab data for the last 24 hours is as noted below. Vital Signs Date Time Temp Pulse Resp B/P Pulse O2 O2 Flow FiO2 Ox Delivery Rate 12/04 0909 98.3 81 18 139/90 95 12/04 0900 98.3 81 18 139/90 95 ROOM AIR 12/04 0800 98.1 78 18 150/80 96 12/04 0800 98.1 78 18 150/80 96 ROOM AIR 12/04 0700 98.2 76 20 150/88 93 ROOM AIR 12/04 0600 69 16 129/75 94 ROOM AIR 12/04 0558 92 12/04 0500 65 16 131/73 92 ROOM AIR 12/04 0430 98.2 65 16 131/73 92 12/04 0400 98.2 72 16 119/69 93 ROOM AIR 12/04 0300 72 16 123/63 94 ROOM AIR 12/04 0200 70 18 118/69 93 ROOM AIR 12/04 0100 88 16 134/85 94 ROOM AIR 12/04 0000 98.6 72 18 98/58 91 ROOM AIR 12/03 2300 71 16 113/65 94 ROOM AIR 12/03 2200 79 16 93/57 93 ROOM AIR 12/03 2137 108/52 12/03 2130 85 18 86/56 91 ROOM AIR 12/03 2030 97.8 80 18 143/87 93 ROOM AIR 12/03 2000 97.8 81 18 149/89 94 12/03 2000 105 16 179/113 94 ROOM AIR 12/03 1900 97.8 81 18 149/89 94 ROOM AIR 12/03 1800 98.1 75 18 121/72 95 ROOM AIR 12/03 1800 98.1 75 18 121/72 95 12/03 1704 97.9 89 18 157/92 95 12/03 1700 97.7 89 20 157/92 95 ROOM AIR 12/03 1600 97.9 79 18 146/94 95 ROOM AIR 12/03 1600 97.9 79 18 146/94 95 12/03 1500 98.1 77 18 120/70 94 ROOM AIR 12/03 1445 76 131/77 09/23 1400 98.1 91 20 147/88 94 ROOM AIR 12/03 1400 98.1 91 20 147/88 94 12/03 1339 87 161/86 12/03 1300 97.8 80 20 161/86 93 ROOM AIR 12/03 1200 97.8 73 18 135/88 95 ROOM AIR 12/03 1200 97.8 73 18 135/88 95 12/03 1100 97.9 77 20 143/78 93 ROOM AIR 12/03 1045 88 165/102 12/03 1000 98.1 82 20 145/85 92 12/03 1000 98.1 82 20 145/85 92 ROOM AIR 12/03 0948 98.6 81 16 145/83 91 12/03 1500 12/03 2300 12/04 0700 Intake Total 20 1365 1045 Output Total 1100 175 Balance 20 265 870 Intake, IV 1335 1015 Intake, Oral 30 Intake, Tube 20 30 Irrigant Output, Other 100 100 Output, Urine 1000 75 Patient 72.121 kg Weight Laboratory Tests Test Result Date Time Chemistry Sodium (mmoL/L) 136 12/02 0500 Potassium (mmoL/L) 3.6 12/02 0500 Chloride (mmoL/L) 103 12/02 0500 Carbon Dioxide (mmoL/L) 28 12/02 0500 BUN (mg/dL) 22 12/02 0500 Creatinine (mg/dL) 1.2 12/02 499 Estimated Creat Clear (ML/MIN) 52 12/02 0500 Estimated GFR (MDRD) (ML/MIN) 59 12/02 0500 Glucose (mg/dL) 85 12/02 0500 Lactic Acid (mmol/L) 2.0 11/28 2100 Calcium (mg/dL) 8.6 12/02 0500 Magnesium (mg/dL) 1.8 12/02 0500 Total Bilirubin (mg/dL) 1.0 11/30 0630 AST (U/L) 13 11/30 0630 ALT (U/L) 11 11/30 0630 Alkaline Phosphatase (U/L) 126 11/30 0630 Creatine Kinase (U/L) 89 12/02 0500 CK-MB (CK-2) Rel Index (U/L) 1.1 12/02 0500 CK and CKMB Interp (ng/mL) 1.0 12/02 050 Troponin I (ng/mL) 0.12 12/02 0500 Total Protein (gm/dL) 5.8 11/30 629 Albumin (gm/dL) 2.2 11/30 629 Globulin (gm/dL) 3.6 11/30 629 Albumin/Globulin Ratio 0.6 11/30 629 Amylase (U/L) 51 11/28 185 Lipase (U/L) 88 11/28 185 Hematology WBC (K/MM3) 8.2 12/02 050 RBC (M/mm3) 2.84 12/02 050 Hgb (g/dL) 10.5 12/02 204 Hct (%) 31.9 12/03 2039 MCV (fl) 91.7 12/02 050 RDW (%) 14.8 12/02 050 Plt Count (K/mm3) 203 12/02 050 MPV (fl) 9.2 12/02 050 Gran % (%) 78.3 12/02 050 Gran # (K/mm3) 6.4 12/02 0500 Lymphocytes % (%) 13.1 12/02 0500 Monocytes % (%) 6.7 12/02 0500 Eosinophils % (%) 1.7 12/02 0500 Basophils % (%) 0.1 12/02 0500 Lymphocytes # (K/mm3) 1.1 12/02 0500 Monocytes # (K/mm3) 0.6 12/02 0500 Eosinophils # (K/mm3) 0.1 12/02 050 Basophils # (K/MM3) 0.0 12/02 499 PUBS MCHC (g/dl) 33.3 12/02 499 Immunology Antibody Screen NEGATIVE 11/30 929 MCH (pg) 30.6 12/02 050 Miscellaneous Miscellaneous Test POSITIVE 11/30 929 Misc Test Units 12/02 1705 Urines Urine Color YELLOW 11/30 1336 Urine Appearance CLEAR 11/30 1336 Urine pH 5.5 11/30 1336 Ur Specific [place] >= 1.030 11/30 1336 Urine Protein (mg/dL) NEGATIVE 11/30 1336 Urine Ketones (mg/dL) 2+ 11/30 1336 Urine Blood NEGATIVE 11/30 1336 Urine Nitrate NEGATIVE 11/30 1336 Urine Bilirubin 2+ 11/30 1336 Urine Urobilinogen (E.U./dL) 1.0 09/20 1337 Ur Leukocyte Esterase NEGATIVE 11/30 1337 Urine RBC (rbc/hpf) OCC 11/30 1337 Urine WBC (wbc/hpf) 3-5 11/30 1337 Ur Squamous Epith Cells (#/hpf) NONE 11/30 1337 Urine Bacteria 1+ 11/30 1337 Hyaline Casts (#/lpf) OCC 11/30 1337 Urine Mucus 1+ 11/28 1850 Urine Glucose NEGATIVE 11/30 1337 Additional data: Low NG output for 24 hours. Physical Exam VS/I&O Vital Signs Date Time Temp Pulse Resp B/P Pulse O2 O2 Flow FiO2 Ox Delivery Rate 12/04 0909 98.3 81 18 139/90 95 12/04 0900 98.3 81 18 139/90 95 ROOM AIR 12/04 0800 98.1 78 18 150/80 96 12/04 0800 98.1 78 18 150/80 96 ROOM AIR 12/04 0700 98.2 76 20 150/88 93 ROOM AIR 12/04 0600 69 16 129/75 94 ROOM AIR 12/04 0558 92 12/04 0500 65 16 131/73 92 ROOM AIR 12/04 0430 98.2 65 16 131/73 92 12/04 0400 98.2 72 16 119/69 93 ROOM AIR 12/04 0300 72 16 123/63 94 ROOM AIR 12/04 0200 70 18 118/69 93 ROOM AIR 12/04 0100 88 16 134/85 94 ROOM AIR 12/04 0000 98.6 72 18 98/58 91 ROOM AIR 12/03 2300 71 16 113/65 94 ROOM AIR 12/03 2200 79 16 93/57 93 ROOM AIR 12/03 2137 108/52 12/03 2130 85 18 86/56 91 ROOM AIR 12/03 2030 97.8 80 18 143/87 93 ROOM AIR 12/03 2000 97.8 81 18 149/89 94 12/03 2000 105 16 179/113 94 ROOM AIR 12/03 1900 97.8 81 18 149/89 94 ROOM AIR 12/03 1800 98.1 75 18 121/72 95 ROOM AIR 12/03 1800 98.1 75 18 121/72 95 12/03 1704 97.9 89 18 157/92 95 12/03 1700 97.7 89 20 157/92 95 ROOM AIR 12/03 1600 97.9 79 18 146/94 95 ROOM AIR 12/03 1600 97.9 79 18 146/94 95 12/03 1500 98.1 77 18 120/70 94 ROOM AIR 12/03 1445 76 131/77 12/03 1400 98.1 91 20 147/88 94 ROOM AIR 12/03 1400 98.1 91 20 147/88 94 12/03 1339 87 161/86 12/03 1300 97.8 80 20 161/86 93 ROOM AIR 12/03 1200 97.8 73 18 135/88 95 ROOM AIR 12/03 1200 97.8 73 18 135/88 95 12/03 1100 97.9 77 20 143/78 93 ROOM AIR 12/03 1045 88 165/102 12/03 1000 98.1 82 20 145/85 92 12/03 1000 98.1 82 20 145/85 92 ROOM AIR 12/03 0948 98.6 81 16 145/83 91 I&O 12/04 0700 Intake Total 2430 Output Total 1275 Balance 1155 Intake, IV 2350 Intake, Oral 30 Intake, Tube 50 Irrigant Output, Other 200 Output, Urine 1075 Patient 72.121 kg Weight Exam General appearance no acute distress Respiratory no distress Cardiovascular regular rate and rhythm Abdomen soft (incision c/d/i) Post op patient plan Diagnoses: post-op ileus shortness of air - not hypoxic (nursing to notify primary service) lung cancer supraventricular tachycardia Plan: Ambulate, DVT prophylaxis, NG to SD... likely out later today, management as per primary service This inpt stay is expected to cross 2 MNs from start of care Yes at 0930
--- NOTE | 2016-12-04 14:35 | ACUTE CARE PROGRESS NOTE (QUA) ---
Progress Notes Subjective Date 12/04/16 Time 1432 Note He seems more stable today. He is reluctant to have the NG tube removed for fear that he may have to go back down. Passing no gas today. He did pass gas yesterday. See Dr. De La Cruz's note. Objective Findings Last VS-Temp:98.3 B/P:139/90 Pulse:81 Resp:18 SaO2:95 ROOM AIR Last weight lbs:159 oz:0 K.121 Method:Bed Scales Exam General appearance: alert, no acute distress Eyes: anicteric ENT: mucous membranes moist Cardiovascular: regular rate & rhythm, with ectopics Respiratory: good air movement, no respiratory distress ABD: soft (NG is clamped) Genitourinary: normal voiding & quantity Extremities: no peripheral edema Skin: dry, intact Neuro: alert, oriented, speech clear Reviewed: medications, vital signs, consult note Assessment/Plan Problem List 1. SBO (small bowel obstruction) Status: Acute 2. Anemia Status: Chronic 3. Weakness Status: Chronic 4. Lung cancer Status: Chronic 5. Rheumatoid arthritis Status: Chronic 6. GERD (gastroesophageal reflux disease) Status: Chronic 7. Coronary artery disease Status: Chronic 8. Hypertension Status: Chronic 9. Paroxysmal SVT (supraventricular tachycardia) 10. Cardiomyopathy 11. Dysuria Patient condition Improving Plan: continue current care, we will try clear liquids This inpt stay is expected to cross 2 MNs from start of care Yes at 1430
[2016-12-05] VITALS (11 sets, daily range): BP systolic 96–148; BP diastolic 51–89
[2016-12-05 05:18] LABS: HEMOGLOBIN 10.1 g/dL (14.1-18.0)
--- NOTE | 2016-12-05 07:55 | SURGEON PROGRESS NOTE ---
Subjective data Subjective data: BERRY ROSAS is a 76 M .Patient denies complaint of nausea and vomitting.He reports his last pain level as 0 on a 0-10 pain scale. Patient had NG out yesterday and started on clears. Passed some gas yesterday. No flatus today. Feels a bit bloated. Some nausea with clears. No stool. Assessment findings Assessment Exam General appearance: normal appearance ABD: normal bowel sounds, distended Patient plan Plan: IV fluids Additional data: Will DC [employer]LTRY [employer]ER and start oral pain meds judiciously. Limit to clears. May try Dulcolax suppository. Decrease IV fluids. at 0755
--- NOTE | 2016-12-05 07:55 | SURGEON PROGRESS NOTE ---
Subjective data Subjective data: BERRY ROSAS is a 76 M .Patient denies complaint of nausea and vomitting.He reports his last pain level as 0 on a 0-10 pain scale. Patient had NG out yesterday and started on clears. Passed some gas yesterday. No flatus today. Feels a bit bloated. Some nausea with clears. No stool. Assessment findings Assessment Exam General appearance: normal appearance ABD: normal bowel sounds, distended Patient plan Plan: IV fluids Additional data: Will DC [employer] and start oral pain meds judiciously. Limit to clears. May try Dulcolax suppository. Decrease IV fluids. at 0755
--- NOTE | 2016-12-05 08:00 | ACUTE CARE PROGRESS NOTE (QUA) ---
Progress Notes Subjective Date 12/05/16 Time 0756 Note 76 yo WM in bed in NAD. NG tube out. Some abdominal soreness and tailbone soreness relayed. Liquid breakfast tolerated so far. No chest pains. Objective Findings Last VS-Temp:98.4 B/P:114/76 Pulse:79 Resp:18 SaO2:94 ROOM AIR Last weight lbs:160 oz:8 K.802 Method:Bed Scales Exam General appearance: alert, awake, no acute distress Cardiovascular: regular rate & rhythm Respiratory: decreased breath sounds at bases without rales or wheezing. ABD: decreased bowel sounds. Extremities: moves all, no peripheral edema Neuro: alert, oriented Reviewed: medications, vital signs, lab results Assessment/Plan Problem List 1. SBO (small bowel obstruction) Status: Acute 2. Anemia Status: Chronic Qualifiers: Anemia type: unspecified type Qualified Code: D64.9 - Anemia, unspecified 3. Weakness Status: Chronic 4. Lung cancer Status: Chronic 5. Rheumatoid arthritis Status: Chronic 6. GERD (gastroesophageal reflux disease) Status: Chronic 7. Coronary artery disease Status: Chronic Qualifiers: Coronary Disease-Associated Artery/Lesion type: [place] artery [place] vs. transplanted heart: [place] heart Associated angina: without angina Qualified Code: I25.10 - Atherosclerotic heart disease of [place] coronary artery without angina pectoris 8. Hypertension Status: Chronic 9. Paroxysmal SVT (supraventricular tachycardia) Assessment/Plan: controlled on combo of metoprolol and diltiazem. 10. Cardiomyopathy Assessment/Plan: Continue BB and ELLY. Qualifiers: Cardiomyopathy type: ischemic Qualified Code: I25.5 - Ischemic cardiomyopathy 11. Dysuria Patient condition Stable Plan: continue current care This inpt stay is expected to cross 2 MNs from start of care Yes at 0800
--- NOTE | 2016-12-05 08:00 | ACUTE CARE PROGRESS NOTE (QUA) ---
Progress Notes Subjective Date 12/05/16 Time 0756 Note 76 yo WM in bed in NAD. NG tube out. Some abdominal soreness and tailbone soreness relayed. Liquid breakfast tolerated so far. No chest pains. Objective Findings Last VS-Temp:98.4 B/P:114/76 Pulse:79 Resp:18 SaO2:94 ROOM AIR Last weight lbs:160 oz:8 K.802 Method:Bed Scales Exam General appearance: alert, awake, no acute distress Cardiovascular: regular rate & rhythm Respiratory: decreased breath sounds at bases without rales or wheezing. ABD: decreased bowel sounds. Extremities: moves all, no peripheral edema Neuro: alert, oriented Reviewed: medications, vital signs, lab results Assessment/Plan Problem List 1. SBO (small bowel obstruction) Status: Acute 2. Anemia Status: Chronic Qualifiers: Anemia type: unspecified type Qualified Code: D64.9 - Anemia, unspecified 3. Weakness Status: Chronic 4. Lung cancer Status: Chronic 5. Rheumatoid arthritis Status: Chronic 6. GERD (gastroesophageal reflux disease) Status: Chronic 7. Coronary artery disease Status: Chronic Qualifiers: Coronary Disease-Associated Artery/Lesion type: [place] artery [place] vs. transplanted heart: [place] heart Associated angina: without angina Qualified Code: I25.10 - Atherosclerotic heart disease of [place] coronary artery without angina pectoris 8. Hypertension Status: Chronic 9. Paroxysmal SVT (supraventricular tachycardia) Assessment/Plan: controlled on combo of metoprolol and diltiazem. 10. Cardiomyopathy Assessment/Plan: Continue BB and ELLY. Qualifiers: Cardiomyopathy type: ischemic Qualified Code: I25.5 - Ischemic cardiomyopathy 11. Dysuria Patient condition Stable Plan: continue current care This inpt stay is expected to cross 2 MNs from start of care Yes at 0800
--- NOTE | 2016-12-05 08:50 | ACUTE CARE PROGRESS NOTE (QUA) ---
Progress Notes Subjective Date 12/05/16 Time 0838 Note Thinks he is improving; sore tailbone; taking liquids well; no stools but passed flatus; no nausea or vomiting; NGT removed last evening; Has ambulated in the hallway; voiding QS; abdomen is sore. denies CP; some cough and SOB Objective Findings Laboratory Tests 12/05/16 0450: Sodium 133 L, Potassium 4.2, Chloride 103, Carbon Dioxide 26, BUN 8, Creatinine 1.2, Estimated Creat Clear 53, Estimated GFR (MDRD) 59, Glucose 98, Calcium 8.3 L, WBC 6.7, RBC 3.33 L, Hgb 10.1 L, Hct 30.2 L, MCV 90.8, RDW 14.6, Plt Count 187, MPV 9.1, Gran % 76.5, Gran # 5.1, Lymphocytes % 15.0, Monocytes % 4.6, Eosinophils % 3.6, Basophils % 0.2, Lymphocytes # 1.0, Monocytes # 0.3, Eosinophils # 0.2, Basophils # 0.0, PUBS MCHC 33.3, MCH 30.2 Vital Signs Date Time Temp Pulse Resp B/P Pulse O2 O2 Flow FiO2 Ox Delivery Rate 12/05 0800 98.5 12/05 0745 98.5 98 18 148/89 93 12/05 0600 79 18 114/76 94 ROOM AIR 12/05 0500 77 18 128/72 96 ROOM AIR 12/05 0400 98.4 79 18 107/61 93 ROOM AIR 12/05 0400 98.4 80 18 107/61 95 12/05 0300 75 16 118/63 93 ROOM AIR 12/05 0200 79 20 106/67 94 ROOM AIR 12/05 0158 18 12/05 0100 68 18 103/62 93 ROOM AIR 12/05 0000 98.3 72 16 96/51 94 ROOM AIR 12/04 2300 84 18 101/62 94 ROOM AIR 12/04 2200 91 16 113/71 94 ROOM AIR 12/04 2100 93 18 112/65 93 ROOM AIR 12/04 2030 98.4 91 18 134/83 95 12/04 2000 92 16 145/93 96 ROOM AIR 12/04 1800 98.1 89 20 124/82 95 ROOM AIR 12/04 1800 98.1 89 20 124/82 95 12/04 1705 98.5 78 18 130/81 95 12/04 1700 98.1 78 16 130/81 96 ROOM AIR 12/04 1600 98.7 78 18 130/80 94 09 1600 98.7 78 18 130/80 94 ROOM AIR 12/04 1500 98.2 81 18 133/86 95 ROOM AIR 12/04 1400 98.5 86 16 157/86 93 12/04 1400 98.5 86 16 157/86 93 ROOM AIR 12/04 1300 98.5 84 16 141/82 93 ROOM AIR 12/04 1200 98.1 83 20 119/73 93 12/04 1200 98.1 83 20 119/73 93 ROOM AIR 12/04 1100 98.1 84 16 132/79 94 ROOM AIR 12/04 1000 98.1 85 18 128/68 95 12/04 1000 98.1 85 18 124/68 95 ROOM AIR 12/04 0909 98.3 81 18 139/90 95 12/04 0900 98.3 81 18 139/90 95 ROOM AIR Current Medications Albuterol/Ipratropium 3 ML Q6H6 INH (UNV) Bisacodyl 10 MG ONCE ONE GA (DC) Hydrocodone Bitart/Acetaminophen 1 TAB Q6HP PRN PO Hydrocodone Bitart/Acetaminophen 2 TAB Q6HP PRN PO Morphine Sulfate 1 MG Q1HP PRN IV Morphine Sulfate 0 .STK-MED ONE IV (DC) Finasteride 5 MG QHS PO Acetaminophen 1,000 MG Q6HP PRN PO Diltiazem HCl 120 MG DAILY PO Metoprolol Succinate 100 MG QHS PO Pantoprazole Sodium 40 MG BID IV Sodium Chloride 10 ML PRN PRN IV Potassium Chloride/Dextrose/Sod Cl 1,000 ML .[id number] IV Lisinopril 2.5 MG DAILY PO Phenol 2 SPRAYS Q2HP PRN MT Terazosin HCl 5 MG QHS PO Sodium Chloride 25 ML PRN PRN IV Ondansetron HCl 4 MG Q6HP PRN IV Morphine Sulfate 1 MG [id number] PRN IV (DC) Isosorbide Mononitrate 30 MG DAILY PO 12/04 1500 12/04 2300 12/05 0700 Intake Total 0 1166 Output Total 1100 Balance 0 66 Intake, IV 1166 Intake, Tube 0 Irrigant Output, Urine 1100 Patient 161 lb Weight Last VS-Temp:98.5 B/P:148/89 Pulse:98 Resp:18 SaO2:93 ROOM AIR Last weight lbs:160 oz:8 K.802 Method:Bed Scales Exam General appearance: alert, active, awake, no acute distress, moves in the bed easily Cardiovascular: regular rate & rhythm Respiratory: scattered wheezing and rhonchi posteriorly ABD: non-distended, soft, bowel sounds present, surgical wound appears clean and healing Extremities: no peripheral edema, no calf tenderness Neuro: alert, oriented, speech clear Assessment/Plan Problem List 1. SBO (small bowel obstruction) Status: Acute 2. Anemia Status: Chronic 3. Weakness Status: Chronic 4. Lung cancer Status: Chronic 5. Rheumatoid arthritis Status: Chronic 6. GERD (gastroesophageal reflux disease) Status: Chronic 7. Coronary artery disease Status: Chronic 8. Hypertension Status: Chronic 9. Paroxysmal SVT (supraventricular tachycardia) 10. Cardiomyopathy 11. Dysuria 12. Post-operative state Patient condition Improving Plan: continue current care, will start duonebs This inpt stay is expected to cross 2 MNs from start of care Yes at 0858
--- NOTE | 2016-12-05 14:28 | ACUTE CARE PROGRESS NOTE (QUA) ---
Progress note: - Feeling a bit better. Less nausea. Had a couple of small bowel movements. at 1427
--- NOTE | 2016-12-05 14:28 | ACUTE CARE PROGRESS NOTE (QUA) ---
Progress note: - Feeling a bit better. Less nausea. Had a couple of small bowel movements. at 1421
[2016-12-06] VITALS (8 sets, daily range): BP systolic 99–123; BP diastolic 57–72
--- NOTE | 2016-12-06 07:21 | SURGEON PROGRESS NOTE ---
Subjective data Subjective data: BERRY ROSAS is a 76 M .Patient denies complaint of nausea and vomitting.He reports his last pain level as 0 on a 0-10 pain scale. No complaints. Tolerating full liquid breakfast this morning. No nausea. Passing lots of flatus. Assessment findings Assessment Exam General appearance: normal appearance, alert ABD: soft Patient plan Plan: Advance diet Additional data: Advance to bland diet. Possible discharge home this afternoon if okay from medical/cardiology standpoint. at 0720
--- NOTE | 2016-12-06 08:03 | ACUTE CARE PROGRESS NOTE (QUA) ---
Progress Notes Subjective Date 12/06/16 Time 0759 Note 76 yo WM in bed in NAD. Passed gas last evening/this AM. Feeling better. Objective Findings Last VS-Temp:98.2 B/P:119/72 Pulse:77 Resp:24 SaO2:95 ROOM AIR Last weight lbs:160 oz:8 K.802 Method:Bed Scales Exam General appearance: alert, awake, no acute distress Cardiovascular: regular rate & rhythm, no murmur Respiratory: clear to auscultation, good air movement ABD: soft, no tenderness Extremities: moves all, no peripheral edema Neuro: alert, intact, oriented Reviewed: medications, vital signs, lab results Assessment/Plan Problem List 1. SBO (small bowel obstruction) Status: Acute 2. Anemia Status: Chronic Qualifiers: Anemia type: unspecified type Qualified Code: D64.9 - Anemia, unspecified 3. Weakness Status: Chronic 4. Lung cancer Status: Chronic 5. Rheumatoid arthritis Status: Chronic 6. GERD (gastroesophageal reflux disease) Status: Chronic 7. Coronary artery disease Status: Chronic Assessment/Plan: clinically stable. Qualifiers: Coronary Disease-Associated Artery/Lesion type: [place] artery [place] vs. transplanted heart: [place] heart Associated angina: without angina Qualified Code: I25.10 - Atherosclerotic heart disease of [place] coronary artery without angina pectoris 8. Hypertension Status: Chronic Assessment/Plan: BP in the 90's systolic overnight. 9. Paroxysmal SVT (supraventricular tachycardia) Assessment/Plan: controlled on combo of BB and CCB. 10. Cardiomyopathy Qualifiers: Cardiomyopathy type: ischemic Qualified Code: I25.5 - Ischemic cardiomyopathy 11. Dysuria 12. Post-operative state Patient condition Stable Plan: continue diltiazem at current dose. Monitor BP and consider reducing metoprolol to 50 mg daily. This inpt stay is expected to cross 2 MNs from start of care Yes at 0808
--- NOTE | 2016-12-06 08:03 | ACUTE CARE PROGRESS NOTE (QUA) ---
Progress Notes Subjective Date 12/06/16 Time 0759 Note 76 yo WM in bed in NAD. Passed gas last evening/this AM. Feeling better. Objective Findings Last VS-Temp:98.2 B/P:119/72 Pulse:77 Resp:24 SaO2:95 ROOM AIR Last weight lbs:160 oz:8 K.802 Method:Bed Scales Exam General appearance: alert, awake, no acute distress Cardiovascular: regular rate & rhythm, no murmur Respiratory: clear to auscultation, good air movement ABD: soft, no tenderness Extremities: moves all, no peripheral edema Neuro: alert, intact, oriented Reviewed: medications, vital signs, lab results Assessment/Plan Problem List 1. SBO (small bowel obstruction) Status: Acute 2. Anemia Status: Chronic Qualifiers: Anemia type: unspecified type Qualified Code: D64.9 - Anemia, unspecified 3. Weakness Status: Chronic 4. Lung cancer Status: Chronic 5. Rheumatoid arthritis Status: Chronic 6. GERD (gastroesophageal reflux disease) Status: Chronic 7. Coronary artery disease Status: Chronic Assessment/Plan: clinically stable. Qualifiers: Coronary Disease-Associated Artery/Lesion type: [place] artery [place] vs. transplanted heart: [place] heart Associated angina: without angina Qualified Code: I25.10 - Atherosclerotic heart disease of [place] coronary artery without angina pectoris 8. Hypertension Status: Chronic Assessment/Plan: BP in the 90's systolic overnight. 9. Paroxysmal SVT (supraventricular tachycardia) Assessment/Plan: controlled on combo of BB and CCB. 10. Cardiomyopathy Qualifiers: Cardiomyopathy type: ischemic Qualified Code: I25.5 - Ischemic cardiomyopathy 11. Dysuria 12. Post-operative state Patient condition Stable Plan: continue diltiazem at current dose. Monitor BP and consider reducing metoprolol to 50 mg daily. This inpt stay is expected to cross 2 MNs from start of care Yes at 0808
--- NOTE | 2016-12-06 09:13 | ACUTE CARE PROGRESS NOTE (QUA) ---
Progress Notes Subjective Date 12/06/16 Time 0750 Note Feels like he is better; walked in the hallway 3 times yesterday; eating some; slight nausea; no vomiting; had stools yesterday; voiding QS; Denies CP; sometimes is SOB; cough has improved with nebs; HR has been stable Objective Findings Vital Signs Date Time Temp Pulse Resp B/P Pulse O2 O2 Flow FiO2 Ox Delivery Rate 12/06 0812 98.2 79 22 123/57 94 ROOM AIR 12/06 0758 24 12/06 0555 2 12/06 0555 95 ROOM AIR 12/06 0416 98.2 77 20 119/72 94 ROOM AIR 12/06 0022 98.3 81 24 99/59 93 ROOM AIR 12/05 2024 98.1 75 18 122/60 95 12/05 2024 98.1 75 18 122/60 95 ROOM AIR 12/05 1821 2 12/05 1821 96 ROOM AIR 12/05 1727 20 12/05 1622 98.5 85 20 135/74 94 12/05 1251 2 12/05 1251 94 ROOM AIR 12/05 1137 20 Current Medications Diltiazem HCl 120 MG DAILY PO Isosorbide Mononitrate 30 MG DAILY PO Lisinopril 2.5 MG DAILY PO Hydrocodone Bitart/Acetaminophen 0 .STK-MED ONE PO (DC) Hydrocodone Bitart/Acetaminophen 0 .STK-MED ONE PO (DC) Sodium Chloride 10 ML PRN PRN IV Finasteride 5 MG QHS PO Metoprolol Succinate 100 MG QHS PO Pantoprazole Sodium 40 MG BID IV Terazosin HCl 5 MG QHS PO Hydrocodone Bitart/Acetaminophen 0 .STK-MED ONE PO (DC) Levalbuterol HCl 0.63 MG TIDRT INH (DC) Levalbuterol HCl 0.63 MG TIDRT INH Levalbuterol HCl 0 .STK-MED ONE INH (DC) Albuterol/Ipratropium 3 ML Q6H6 INH (CAN) Potassium Chloride/Dextrose/Sod Cl 1,000 ML .[id number] IV Hydrocodone Bitart/Acetaminophen 0 .STK-MED ONE PO (DC) Acetaminophen 1,000 MG Q6HP PRN PO Hydrocodone Bitart/Acetaminophen 1 TAB Q6HP PRN PO Hydrocodone Bitart/Acetaminophen 2 TAB Q6HP PRN PO Morphine Sulfate 1 MG Q1HP PRN IV Ondansetron HCl 4 MG Q6HP PRN IV Phenol 2 SPRAYS Q2HP PRN MT Sodium Chloride 25 ML PRN PRN IV Sodium Chloride 10 ML PRN PRN IV Potassium Chloride/Dextrose/Sod Cl 1,000 ML .STK-MED ONE IV (DC) Hydrocodone Bitart/Acetaminophen 1 TAB Q6HP PRN PO (DC) Hydrocodone Bitart/Acetaminophen 2 TAB Q6HP PRN PO (DC) Morphine Sulfate 1 MG Q1HP PRN IV (DC) Finasteride 5 MG QHS PO (DC) Acetaminophen 1,000 MG Q6HP PRN PO (DC) Diltiazem HCl 120 MG DAILY PO (DC) Metoprolol Succinate 100 MG QHS PO (DC) Pantoprazole Sodium 40 MG BID IV (DC) Sodium Chloride 10 ML PRN PRN IV (DC) Potassium Chloride/Dextrose/Sod Cl 1,000 ML .[id number] IV (DC) Lisinopril 2.5 MG DAILY PO (DC) Phenol 2 SPRAYS Q2HP PRN MT (DC) Terazosin HCl 5 MG QHS PO (DC) Sodium Chloride 25 ML PRN PRN IV (DC) Ondansetron HCl 4 MG Q6HP PRN IV (DC) Isosorbide Mononitrate 30 MG DAILY PO (DC) 12/05 1500 12/05 2300 12/06 0700 Intake Total 600 938 869 Output Total 425 1300 Balance 600 513 -431 Intake, IV 578 869 Intake, Oral 600 360 Output, Urine 425 1300 Last VS-Temp:98.2 B/P:123/57 Pulse:79 Resp:22 SaO2:94 ROOM AIR Last weight lbs:160 oz:8 K.802 Method:Bed Scales Exam General appearance: alert, active Cardiovascular: regular rate & rhythm Respiratory: crackles in right base ABD: soft, bowel sounds present, postop tenderness Neuro: alert, oriented, speech clear Assessment/Plan Problem List 1. SBO (small bowel obstruction) Status: Acute 2. Anemia Status: Chronic 3. Weakness Status: Chronic 4. Lung cancer Status: Chronic 5. Rheumatoid arthritis Status: Chronic 6. GERD (gastroesophageal reflux disease) Status: Chronic 7. Coronary artery disease Status: Chronic 8. Hypertension Status: Chronic 9. Paroxysmal SVT (supraventricular tachycardia) 10. Cardiomyopathy 11. Dysuria 12. Post-operative state Patient condition Improving Plan: continue current care This inpt stay is expected to cross 2 MNs from start of care Yes at 0912
--- NOTE | 2016-12-06 16:11 | ACUTE CARE PROGRESS NOTE (QUA) ---
Progress note: - Patient doing well without complaints. Tolerating bland diet. Ambulating. When patient discharged will see in office Monday. at 1611
[2016-12-07 00:19] VITALS: BP 106/56
[2016-12-07 04:30] VITALS: BP 103/54
[2016-12-07 08:02] VITALS: BP 132/76
--- NOTE | 2016-12-07 08:37 | ACUTE CARE PROGRESS NOTE (QUA) ---
Progress Notes Subjective Date 12/07/16 Time 0750 Note States he is doing OK; walked yesterday; SOB with walking at times; some cough ; eating OK; cannot eat much at one time; no further bowel movements; continues to pass flatus; voiding QS Objective Findings Vital Signs Date Time Temp Pulse Resp B/P Pulse O2 O2 Flow FiO2 Ox Delivery Rate 12/07 0802 98.0 90 22 132/76 93 ROOM AIR 12/07 0559 2 12/07 0559 95 ROOM AIR 12/07 0430 98.2 59 16 103/54 95 ROOM AIR 12/07 0156 18 12/07 0019 98.4 70 18 106/56 92 ROOM AIR 12/06 2340 2 12/06 2115 98.7 71 18 110/57 93 12/06 2030 98.7 71 18 110/57 93 ROOM AIR 12/06 1746 18 12/06 1556 97.7 74 18 112/60 93 ROOM AIR 12/06 1139 98.1 72 20 116/67 100 ROOM AIR 12/06 0900 98.2 79 22 123/57 94 Current Medications Hydrocodone Bitart/Acetaminophen 0 .STK-MED ONE PO (DC) Ondansetron HCl 0 .STK-MED ONE .ROUTE (DC) Hydrocodone Bitart/Acetaminophen 0 .STK-MED ONE PO (DC) Potassium Chloride/Dextrose/Sod Cl 1,000 ML .STK-MED ONE IV (DC) Diltiazem HCl 120 MG DAILY PO Isosorbide Mononitrate 30 MG DAILY PO Lisinopril 2.5 MG DAILY PO Sodium Chloride 10 ML PRN PRN IV Finasteride 5 MG QHS PO Metoprolol Succinate 100 MG QHS PO Pantoprazole Sodium 40 MG BID IV Terazosin HCl 5 MG QHS PO Levalbuterol HCl 0.63 MG TIDRT INH Potassium Chloride/Dextrose/Sod Cl 1,000 ML .[id number] IV Acetaminophen 1,000 MG Q6HP PRN PO Hydrocodone Bitart/Acetaminophen 1 TAB Q6HP PRN PO Hydrocodone Bitart/Acetaminophen 2 TAB Q6HP PRN PO Morphine Sulfate 1 MG Q1HP PRN IV Ondansetron HCl 4 MG Q6HP PRN IV Phenol 2 SPRAYS Q2HP PRN MT Sodium Chloride 25 ML PRN PRN IV Sodium Chloride 10 ML PRN PRN IV 12/06 1500 12/06 2300 09/27 0700 Intake Total 360 120 60 Output Total 612 222 3578 Balance 110 -230 -1440 Intake, Oral 360 120 60 Output, Urine 559 438 4829 Last VS-Temp:98.0 B/P:132/76 Pulse:90 Resp:22 SaO2:93 ROOM AIR Last weight lbs:160 oz:8 K.802 Method:Bed Scales Exam General appearance: alert, active, no acute distress, sitting on bedside eating breakfast Cardiovascular: regular rate & rhythm Respiratory: crackles and wheeze in right lower lobe ABD: non-distended, soft, bowel sounds present Extremities: full range of motion, no peripheral edema Neuro: alert, oriented, speech clear Assessment/Plan Problem List 1. SBO (small bowel obstruction) Status: Acute 2. Anemia Status: Chronic 3. Weakness Status: Chronic 4. Lung cancer Status: Chronic 5. Rheumatoid arthritis Status: Chronic 6. GERD (gastroesophageal reflux disease) Status: Chronic 7. Coronary artery disease Status: Chronic 8. Hypertension Status: Chronic 9. Paroxysmal SVT (supraventricular tachycardia) 10. Cardiomyopathy 11. Dysuria 12. Post-operative state Patient condition continues to improve Plan: continue current care, possible discharge today This inpt stay is expected to cross 2 MNs from start of care Yes at 0836
--- NOTE | 2016-12-07 08:37 | ACUTE CARE PROGRESS NOTE (QUA) ---
Progress Notes Subjective Date 12/07/16 Time 0750 Note States he is doing OK; walked yesterday; SOB with walking at times; some cough ; eating OK; cannot eat much at one time; no further bowel movements; continues to pass flatus; voiding QS Objective Findings Vital Signs Date Time Temp Pulse Resp B/P Pulse O2 O2 Flow FiO2 Ox Delivery Rate 12/07 0802 98.0 90 22 132/76 93 ROOM AIR 12/07 0559 2 12/07 0559 95 ROOM AIR 12/07 0430 98.2 59 16 103/54 95 ROOM AIR 12/07 0156 18 12/07 0019 98.4 70 18 106/56 92 ROOM AIR 12/06 2340 2 12/06 2115 98.7 71 18 110/57 93 12/06 2030 98.7 71 18 110/57 93 ROOM AIR 12/06 1746 18 12/06 1556 97.7 74 18 112/60 93 ROOM AIR 12/06 1139 98.1 72 20 116/67 100 ROOM AIR 12/06 0900 98.2 79 22 123/57 94 Current Medications Hydrocodone Bitart/Acetaminophen 0 .STK-MED ONE PO (DC) Ondansetron HCl 0 .STK-MED ONE .ROUTE (DC) Hydrocodone Bitart/Acetaminophen 0 .STK-MED ONE PO (DC) Potassium Chloride/Dextrose/Sod Cl 1,000 ML .STK-MED ONE IV (DC) Diltiazem HCl 120 MG DAILY PO Isosorbide Mononitrate 30 MG DAILY PO Lisinopril 2.5 MG DAILY PO Sodium Chloride 10 ML PRN PRN IV Finasteride 5 MG QHS PO Metoprolol Succinate 100 MG QHS PO Pantoprazole Sodium 40 MG BID IV Terazosin HCl 5 MG QHS PO Levalbuterol HCl 0.63 MG TIDRT INH Potassium Chloride/Dextrose/Sod Cl 1,000 ML .[id number] IV Acetaminophen 1,000 MG Q6HP PRN PO Hydrocodone Bitart/Acetaminophen 1 TAB Q6HP PRN PO Hydrocodone Bitart/Acetaminophen 2 TAB Q6HP PRN PO Morphine Sulfate 1 MG Q1HP PRN IV Ondansetron HCl 4 MG Q6HP PRN IV Phenol 2 SPRAYS Q2HP PRN MT Sodium Chloride 25 ML PRN PRN IV Sodium Chloride 10 ML PRN PRN IV 12/06 1500 12/06 2300 09/27 0700 Intake Total 360 120 60 Output Total 025 039 4097 Balance 110 -230 -1440 Intake, Oral 360 120 60 Output, Urine 678 734 9099 Last VS-Temp:98.0 B/P:132/76 Pulse:90 Resp:22 SaO2:93 ROOM AIR Last weight lbs:160 oz:8 K.802 Method:Bed Scales Exam General appearance: alert, active, no acute distress, sitting on bedside eating breakfast Cardiovascular: regular rate & rhythm Respiratory: crackles and wheeze in right lower lobe ABD: non-distended, soft, bowel sounds present Extremities: full range of motion, no peripheral edema Neuro: alert, oriented, speech clear Assessment/Plan Problem List 1. SBO (small bowel obstruction) Status: Acute 2. Anemia Status: Chronic 3. Weakness Status: Chronic 4. Lung cancer Status: Chronic 5. Rheumatoid arthritis Status: Chronic 6. GERD (gastroesophageal reflux disease) Status: Chronic 7. Coronary artery disease Status: Chronic 8. Hypertension Status: Chronic 9. Paroxysmal SVT (supraventricular tachycardia) 10. Cardiomyopathy 11. Dysuria 12. Post-operative state Patient condition continues to improve Plan: continue current care, possible discharge today This inpt stay is expected to cross 2 MNs from start of care Yes at 0836
[2016-12-07 09:00] VITALS: BP 132/76
[2016-12-07] MEDS ORDERED: METOPROLOL SUC100 M1 PO (09:39)
[2016-12-07] MEDS ORDERED: CARDIZEM CD 12120 MG PO (09:40)
[2016-12-07] MEDS ORDERED: FINASTERIDE5 M1 PO (09:41)
[2016-12-07] MEDS ORDERED: HYDROCODONE/ACE1 TA9 PO (09:42)
[2016-12-07] MEDS ORDERED: HYTRIN5 MG PO (09:44)
[2016-12-07] MEDS ORDERED: LISINOPRIL2.5 M1 PO (09:45)
--- NOTE | 2016-12-07 10:14 | SURGEON PROGRESS NOTE ---
Subjective data Subjective data: BERRY ROSAS is a 76 M .Patient denies complaint of nausea and vomitting.He reports his last pain level as 2P on a 0-10 pain scale. Patient resting comfortably. Tolerating bland diet. Passing gas but no bowel movement. Assessment findings Assessment Exam ABD: soft Patient plan Plan: DC at 1014
[2016-12-07 12:06] VITALS: BP 136/68
--- NOTE | 2016-12-07 13:56 | ACUTE CARE PROGRESS NOTE (QUA) ---
Progress Notes Subjective Date 12/07/16 Time 1352 Note 76 yo WM in bed in NAD. Still passing flatus. Tolerating diet. Telemetry shows controlled rate and sinus rhythm with occasional PAC's and PVC's. No SVT. Objective Findings Last VS-Temp:98.5 B/P:136/68 Pulse:84 Resp:20 SaO2:94 ROOM AIR Last weight lbs:160 oz:8 K.802 Method:Bed Scales Exam General appearance: alert, awake, no acute distress Cardiovascular: regular rate & rhythm Respiratory: clear to auscultation Reviewed: medications, vital signs, lab results Assessment/Plan Problem List 1. SBO (small bowel obstruction) Status: Acute 2. Anemia Status: Chronic Qualifiers: Anemia type: unspecified type Qualified Code: D64.9 - Anemia, unspecified 3. Weakness Status: Chronic 4. Lung cancer Status: Chronic 5. Rheumatoid arthritis Status: Chronic 6. GERD (gastroesophageal reflux disease) Status: Chronic 7. Coronary artery disease Status: Chronic Qualifiers: Coronary Disease-Associated Artery/Lesion type: [place] artery [place] vs. transplanted heart: [place] heart Associated angina: without angina Qualified Code: I25.10 - Atherosclerotic heart disease of [place] coronary artery without angina pectoris 8. Hypertension Status: Chronic 9. Paroxysmal SVT (supraventricular tachycardia) Assessment/Plan: controlled on BB and CCB. 10. Cardiomyopathy Qualifiers: Cardiomyopathy type: ischemic Qualified Code: I25.5 - Ischemic cardiomyopathy 11. Dysuria 12. Post-operative state Patient condition Stable Plan: Pt being discharged home today. Follow up in office in one month. This inpt stay is expected to cross 2 MNs from start of care Yes at 1354
--- NOTE | 2016-12-07 13:56 | ACUTE CARE PROGRESS NOTE (QUA) ---
Progress Notes Subjective Date 12/07/16 Time 1352 Note 76 yo WM in bed in NAD. Still passing flatus. Tolerating diet. Telemetry shows controlled rate and sinus rhythm with occasional PAC's and PVC's. No SVT. Objective Findings Last VS-Temp:98.5 B/P:136/68 Pulse:84 Resp:20 SaO2:94 ROOM AIR Last weight lbs:160 oz:8 K.802 Method:Bed Scales Exam General appearance: alert, awake, no acute distress Cardiovascular: regular rate & rhythm Respiratory: clear to auscultation Reviewed: medications, vital signs, lab results Assessment/Plan Problem List 1. SBO (small bowel obstruction) Status: Acute 2. Anemia Status: Chronic Qualifiers: Anemia type: unspecified type Qualified Code: D64.9 - Anemia, unspecified 3. Weakness Status: Chronic 4. Lung cancer Status: Chronic 5. Rheumatoid arthritis Status: Chronic 6. GERD (gastroesophageal reflux disease) Status: Chronic 7. Coronary artery disease Status: Chronic Qualifiers: Coronary Disease-Associated Artery/Lesion type: [place] artery [place] vs. transplanted heart: [place] heart Associated angina: without angina Qualified Code: I25.10 - Atherosclerotic heart disease of [place] coronary artery without angina pectoris 8. Hypertension Status: Chronic 9. Paroxysmal SVT (supraventricular tachycardia) Assessment/Plan: controlled on BB and CCB. 10. Cardiomyopathy Qualifiers: Cardiomyopathy type: ischemic Qualified Code: I25.5 - Ischemic cardiomyopathy 11. Dysuria 12. Post-operative state Patient condition Stable Plan: Pt being discharged home today. Follow up in office in one month. This inpt stay is expected to cross 2 MNs from start of care Yes at 1353
[2016-12-07 16:02] VITALS: BP 124/75
--- NOTE | 2016-12-09 10:56 | DISCHARGE SUMMARY STANDARD ---
Discharge Summary (FCA2) Date of admission: 11/28/16 Date of discharge: 12/07/16 Problem List: 1. SBO (small bowel obstruction) 2. Anemia 3. Weakness 4. Lung cancer 5. Rheumatoid arthritis 6. GERD (gastroesophageal reflux disease) 7. Coronary artery disease 8. Hypertension 9. Paroxysmal SVT (supraventricular tachycardia) 10. Cardiomyopathy 11. Dysuria 12. Post-operative state History of present illness: Mr Ocampo is a 76 year old male with a history of anemia, RA, GERD, HTN, Lung cancer, PUD, and CAD who presented to [facility] ER with 1 day of severe sharp, abdominal pain associated with nausea. He stated that he did not vomit or have diarrhea. He had 3 formed stools yesterday AM. He felt well prior to the sudden onset of this pain. When the pain persisted he came to the ER. He noted that he is sometimes SOB and denied CP. With evaluation in the ER CT revealed a partial SBO; He was give Morphine for the pain and admitted. This AM the pain persists but is not sharp. He is nauseated when sitting. He is voiding. He has had no further stools and no vomiting. Exam on admission: 1ST Vital Signs Result Date Time Pulse Ox 98 11/28 1834 B/P 110/74 11/28 1834 Temp 98.0 11/28 1834 Pulse 83 11/28 1834 Resp 18 11/28 1834 O2 Delivery ROOM AIR 11/28 2220 Exam: General appearance: alert, no acute distress, awakened for exam Cardiovascular: regular rate & rhythm Respiratory: clear to auscultation (bilat anterior and posterior) ABD: non-distended, soft, bowel sounds present, tenderness (RUQ; epigastrium) Extremities: moves all, no peripheral edema, no calf tenderness Neuro: alert, oriented, speech clear Hospital Course: Patient as seen by surgeon, Dr. Callahan, on admission who initially tried for nonop management. AM after admission the pain persisted. He was nauseated when sitting, had no further stools and no vomiting. He had a nasogastric tube placed. He had an appreciable amount of output from the nasogastric tube and continued to have episodic pain with some minor nausea without passage of flatus. Follow-up acute abdominal series revealed no improvement in bowel obstruction and plan was made for operative intervention. Cardiology was consulted for clearance for surgery and followed patient throughout his stay. On 11/30/16 patient had exploratory lap with lysis of adhesions and freeing of intestinal obstruction. Post operatively he received one unit of PRBC. He did develop SVT requiring IV diltiazem which was later changed to PO. The SVT did resolve. NGT was removed on #4 postop day and patient was started on clear liquids. Diet was gradually increased to bland which he did tolerate and bowels were moving. Ambulation was increased and at time if discharge he was walking in the hallways. On 12/07/16 he was discharged to home. Laboratory data this visit: 11/29/16 0615: Sodium 137, Potassium 4.3, Chloride 105, Carbon Dioxide 26, BUN 19 H, Creatinine 1.3, Estimated Creat Clear 47 L, Estimated GFR (MDRD) 54, Glucose 86 , Calcium 8.4 L, WBC 6.1, RBC 2.87 L, Hgb 8.7 L, Hct 26.4 L, MCV 92.0, RDW 14.9, Plt Count 185, MPV 9.4, Gran % 70.3, Gran # 4.3, Lymphocytes % 20.8, Monocytes % 6.1, Eosinophils % 2.2, Basophils % 0.5, Lymphocytes # 1.3, Monocytes # 0.4, Eosinophils # 0.1, Basophils # 0.0, PUBS MCHC 32.8, MCH 30.1 11/28/16 2100: Lactic Acid 2.0 11/28/16 1850: Troponin I 0.06, Amylase 51, Lipase 88 11/28/16 1850: Sodium 136, Potassium 4.1, Chloride 102, Carbon Dioxide 26, BUN 19 H, Creatinine 1.3, Estimated Creat Clear 48 L, Estimated GFR (MDRD) 54, Glucose 115 H, Calcium 8.9, Total Bilirubin 0.7, AST 12 L, ALT 15, Alkaline Phosphatase 143 H, Total Protein 6.5, Albumin 2.6 L, Globulin 3.9 H, Albumin/ Globulin Ratio 0.7 L, WBC 9.9, RBC 3.39 L, Hgb 10.2 L, Hct 31.1 L, MCV 91.8, RDW 15.0, Plt Count 233, MPV 9.0, Gran % 80.1 H, Gran # 7.9, Lymphocytes % 13.8 , Monocytes % 4.1, Eosinophils % 1.8, Basophils % 0.3, Lymphocytes # 1.4, Monocytes # 0.4, Eosinophils # 0.2, Basophils # 0.0, [facility] MCHC 32.9, MCH 30.2, Urine Color YELLOW, Urine Appearance CLEAR, Urine pH 6.0, Ur Specific [place] 1.025, Urine Protein NEGATIVE, Urine Ketones NEGATIVE, Urine Blood NEGATIVE, Urine Nitrate NEGATIVE, Urine Bilirubin NEGATIVE, Urine Urobilinogen 1.0, Ur Leukocyte Esterase NEGATIVE, Urine RBC OCC, Urine WBC 3-5, Ur Squamous Epith Cells 5-10, Urine Bacteria 1+, Urine Mucus 1+, Urine Glucose NEGATIVE 11/30/16 0630: Sodium 137, Potassium 4.6, Chloride 104, Carbon Dioxide 25, BUN 23 H, Creatinine 1.4 H, Estimated Creat Clear 44 L, Estimated GFR (MDRD) 49, Glucose 75, Calcium 8.9, Total Bilirubin 1.0, AST 13 L, ALT 11 L, Alkaline Phosphatase 126 H, Total Protein 5.8 L, Albumin 2.2 L, Globulin 3.6 H, Albumin/Globulin Ratio 0.6 L, WBC 9.0, RBC 3.20 L, Hgb 9.6 L, Hct 29.9 L, MCV 93.6, RDW 14.8, Plt Count 233, MPV 9.7, Gran % 81.6 H, Gran # 7.3, Lymphocytes % 11.4, Monocytes % 5.0, Eosinophils % 1.6, Basophils % 0.3, Lymphocytes # 1.0, Monocytes # 0.5, Eosinophils # 0.1, Basophils # 0.0, [facility] MCHC 32.1, MCH 30.1 12/01/16 0745: WBC 10.4, RBC 2.90 L, Hgb 8.7 L, Hct 26.9 L, MCV 92.7, RDW 14.7, Plt Count 233, MPV 9.3, Gran % 84.8 H, Gran # 8.8 H, Lymphocytes % 10.0, Monocytes % 4.7 , Eosinophils % 0.3, Basophils % 0.1, Lymphocytes # 1.0, Monocytes # 0.5, Eosinophils # 0.0, Basophils # 0.0, [facility] MCHC 32.5, MCH 30.1 11/30/16 1337: Urine Color YELLOW, Urine Appearance CLEAR, Urine pH 5.5, Ur Specific [place] >= 1.030, Urine Protein NEGATIVE, Urine Ketones 2+ H, Urine Blood NEGATIVE, Urine Nitrate NEGATIVE, Urine Bilirubin 2+ H, Urine Urobilinogen 1.0, Ur Leukocyte Esterase NEGATIVE, Urine RBC OCC, Urine WBC 3-5, Ur Squamous Epith Cells NONE, Urine Bacteria 1+, Hyaline Casts OCC, Urine Glucose NEGATIVE 12/02/16 0500: Creatine Kinase 89, CK-MB (CK-2) Rel Index 1.1, CK and CKMB Interp 1.0, Troponin I 0.12 H 12/02/16 0500: Sodium 136, Potassium 3.6, Chloride 103, Carbon Dioxide 28, BUN 22 H, Creatinine 1.2, Estimated Creat Clear 52, Estimated GFR (MDRD) 59, Glucose 85, Calcium 8.6, WBC 8.2, RBC 2.84 L, Hgb 8.7 L, Hct 26.1 L, MCV 91.7, RDW 14.8, Plt Count 203, MPV 9.2, Gran % 78.3, Gran # 6.4, Lymphocytes % 13.1, Monocytes % 6.7, Eosinophils % 1.7, Basophils % 0.1, Lymphocytes # 1.1, Monocytes # 0.6, Eosinophils # 0.1, Basophils # 0.0, PUBS MCHC 33.3, MCH 30.6 12/05/16 0450: Sodium 133 L, Potassium 4.2, Chloride 103, Carbon Dioxide 26, BUN 8, Creatinine 1.2, Estimated Creat Clear 53, Estimated GFR (MDRD) 59, Glucose 98, Calcium 8.3 L, WBC 6.7, RBC 3.33 L, Hgb 10.1 L, Hct 30.2 L, MCV 90.8, RDW 14.6, Plt Count 187, MPV 9.1, Gran % 76.5, Gran # 5.1, Lymphocytes % 15.0, Monocytes % 4.6, Eosinophils % 3.6, Basophils % 0.2, Lymphocytes # 1.0, Monocytes # 0.3, Eosinophils # 0.2, Basophils # 0.0, PUBS MCHC 33.3, MCH 30.2 Imagin11/28/16 CT of abdomen /pelvis IMPRESSION: 1. Multiple loops of mildly dilated small bowel in the mid and proximal small bowel with transition point in the anterior mid abdomen consistent with partial small bowel obstruction. 2. Small amount fluid in the pelvis. 3. Other nonacute findings as described 11/29/16 Acute abdominal series IMPRESSION: 1. FINDINGS consistent with partial small bowel obstruction 2. There is pleural thickening involving the right mid and lower thorax laterally with a cavity present in the right upper lung zone laterally measuring 6 x 2.5 cm associated with the pleural thickening. Cavitating mass or abscess is a consideration. Please correlate with clinical findings. No pertinent clinical history given as far as history of neoplasm. Tuberculosis is also a consideration. 11/29/16 ECHO CONCLUSION: 1. Mildly enlarged left atrium, normal left ventricular size, mild concentric left ventricular hypertrophy, visually estimated ejection fraction of 45% with segmental wall motion abnormality as described above, endocardial surfaces are poorly visualized. Grade 1 diastolic dysfunction seen without tissue Doppler evidence of raised left atrial pressure. 2. Thickened and calcified aortic valve without any significant aortic stenosis aortic insufficiency. 3. Mild mitral and tricuspid regurgitation. 4. No significant pericardial effusion noted. 11/30/16 Acute abdominal series IMPRESSION: 1. Overall no change partial small bowel structure. 2. Interval insertion of nasogastric tube. 3. No change right-sided pulmonary cavitary lesion with pleural parenchymal thickening Discharge medications: Stop taking the following medications: LISINOPRIL (Lisinopril) 10 MG TABLET ORAL TWICE A DAY Terazosin Hcl (Hytrin) 5 MG CAP ORAL AT BEDTIME NIGHTLY Qty = 90 Carvedilol (Carvedilol) 6.25 MG TABLET ORAL 2 QAML ! QPM Carvedilol (Carvedilol 6.25MG) 6.25 MG TAB ORAL TWICE A DAY Qty = 60 Continue taking these medications: Pravastatin Sodium (Pravachol) 40 MG TAB 40 MILLIGRAM ORAL AT BEDTIME NIGHTLY Qty = 90 Leflunomide (Leflunomide) 20 MG TAB 20 MILLIGRAM ORAL DAILY Qty = 90 Fluticasone Propionate (Flonase 50 Mcg Nasal [place]) 16 GM INH 1 SPRAY Nasal DAILY Qty = 16 CHOLECALCIFEROL (VITAMIN D3) (Vitamin D3) 1,000 IU TAB 1,000 INT. UNITS ORAL DAILY Qty = 1 Potassium Chloride (K-Dur) [address] Milliequivalent ORAL DAILY Qty = 180 Hydroxychloroquine Sulfate (Plaquenil) 200 MG TABLET 200 MILLIGRAM ORAL TWICE A DAY Aspirin (Aspirin) 325 MG TABLET 325 MILLIGRAM ORAL DAILY Ferrous Gluconate (Ferrous Gluconate) 324 MG TABLET 324 MILLIGRAM ORAL TWICE A DAY Misoprostol (Cytotec 200MCG Tab) 200 MCG TABLET 200 MICROGRAM ORAL THREE TIMES A DAY Megestrol Acetate (Megestrol 400MG/10ML UDC) 400 MG/10 ML ORAL.SUSP 40 MILLIGRAM FEEDING TUBE 20ML DAILY Omeprazole (Omeprazole 20MG) 20 MG CAPSULE.DR 20 MILLIGRAM ORAL DAILY Loratadine (Claritin) 10 MG CAPSULE 10 MILLIGRAM ORAL DAILY Methotrexate (Methotrexate) 2.5 MG TABLET 2.5 MILLIGRAM ORAL 4 TAB WEEKLY Mirabegron (Myrbetriq) 25 MG TAB.ER.24H 25 MILLIGRAM ORAL DAILY Albuterol Sulfate (Proair Respiclick) 90 MCG AER.POW.BA 117 MICROGRAM INHALATION FOUR TIMES A DAY NEEDED as needed for SOB Start taking the following new medications: METOPROLOL SUCCINATE XL (Metoprolol Succinate) 100 MG TAB.ER.24H 100 MILLIGRAM ORAL AT BEDTIME NIGHTLY Qty = 30 Refills = 4 Diltiazem Hcl (Cardizem Cd 120MG Cap) 120 MG CAP.ER.24H 120 MILLIGRAM ORAL DAILY Qty = 30 Refills = 4 Finasteride (Finasteride) 5 MG TABLET 5 MILLIGRAM ORAL AT BEDTIME NIGHTLY Qty = 30 Refills = 4 HYDROCODONE/ACETAMINOPHEN (Hydrocodon-Acetaminophen 5-325) 1 EACH TABLET 1 TABLET ORAL EVERY 6 HOURS NEEDED as needed for MODERATE PAIN Qty = 20 No Refills Terazosin Hcl (Hytrin) 5 MG CAPSULE 5 MILLIGRAM ORAL AT BEDTIME NIGHTLY Qty = 30 Refills = 4 Lisinopril (Lisinopril) 2.5 MG TABLET 2.5 MILLIGRAM ORAL DAILY Qty = 30 Refills = 4 Disposition: Patient was discharged to home in stable and satisfactory condition. Orders with: Justine Hunter MD Follow up: [address] Kendrick Hunter and with Dr. Callahan 12/12/16 Activity: Limited activity Diet: Continue same diet Discharge to: HOME Agency needed? N To continue with meds as per reconciliation sheet at [phone]
== END 2016-12-07 16:30 | disposition home or self-care (01) | DRG 336 ==
LOC: ER 18:17 → 2ND 21:27
PROVIDERS: Emergency Medicine; Family Medicine; Internal Medicine; Surgery
PROC: 0DN80ZZ Release Small Intestine, Open Approach (ICD-10-PCS; principal; 2016-11-30 13:00)
DX: K56.5 Intestinal adhesions [bands] with obstruction (postinfection) (principal); I97.89 Other postprocedural complications and disorders of the circulatory system, not elsewhere classified; C34.90 Malignant neoplasm of unspecified part of unspecified bronchus or lung; D64.9 Anemia, unspecified; I47.1 Supraventricular tachycardia; I10 Essential (primary) hypertension; I25.10 Atherosclerotic heart disease of native coronary artery without angina pectoris; M06.9 Rheumatoid arthritis, unspecified
CPT/HCPCS: G0238; J0131; J2405; J2543; J2704; J2710; J3490; P9016

== ENCOUNTER → 2016-12-14 | Outpatient (CLI) | payer MEDICARE, OTHER ==
[~2016-12-14] MED LIST changes: +ASPIRIN325 M1 PO; +CARDIZEM CD 12120 MG PO; +CARVEDILOL6.25 M1 PO; +CLARITIN LIQUI-10 MG PO; +CYTOTEC 200MC200 MC1 PO; +FERROUS GLUCON324 MG PO; +FINASTERIDE5 M1 PO; +HYDROCODONE/ACE1 TA9 PO; +LISINOPRIL2.5 M1 PO; +MEGESTROL AC FT; +METHOTREXATE 22.5 MG PO; +METOPROLOL SUC100 M1 PO; +MYRBETRIQ25 MG PO; +OMEPRAZOLE20 MG PO; +PROAIR RES117 MCG/Ac IH
--- NOTE | 2016-12-14 17:19 | RADIOLOGY REPORT PS360 ---
ABDOMEN-FLAT UPRIGHT HISTORY: SURGERY..BOWEL OBShistory of bowel obstruction Patient Age: 76 years: Male Ordering Physician: Justine Hunter MD TECHNIQUE: Flat and upright abdomen COMPARISON acute abdominal series 11/30/2016:CT abdomen 11/28/2016 FINDINGS No free air beneath the diaphragm Right lung base with residual but slightly improving disease. Blunting right CP angle again seen reflecting the chronic pleural changes scarring along with likely persistent right pleural effusion as previously seen here. The bowel gas pattern has improved since 11/30/2016. But we do We continue see [id number] air-fluid levels within overall perhaps minimal dilated loops of small bowel., throughout the abdomen. There is also some moderate stool and gas at the right and proximal transverse colon now seen as well as some minimal gas at the left colon. Minimal stool rectosigmoid.-These features best seen on the supine images. The calcified tortuous aorta noted. Skin jerald from the recent midline incision. Previous ductal hernia repair mass greater features again noted. Clips right upper quadrant from cholecystectomy. Previous sternotomy. Attempted to call family medicine office and communicate with Dr. Hunter cell phone but unsuccessful IMPRESSION 1. Overall improvement bowel gas pattern since 2017. Residual small-moderate air levels scattered throughout minimally distended small bowel. Could reflect minor residual ileus.; Less likely residual mild obstructive changes.. . (Note Most generous gas is seen at the epigastric region upright film, I believe mainly related to the stomach on supine views although difficult to exclude a persistent dilated small bowel here...) [id number] gas and stool throughout colon 2. Pleural scarring and airspace disease persistent right lung base.
== END ==
LOC: RAD 15:45
DX: R10.11 Right upper quadrant pain (principal); K91.30 Postprocedural intestinal obstruction, unspecified as to partial versus complete

== ENCOUNTER → 2016-12-16 | Outpatient (CLI) | payer MEDICARE, OTHER ==
[2016-12-15 10:59] LABS: BUN 14 mg/dL (7-18)
[2016-12-15 11:04] LABS: GFR (ESTIMATED) 45 ML/MIN (>60)
--- NOTE | 2016-12-15 13:13 | RADIOLOGY REPORT PS360 ---
CT ABD PELVIS W/ CONTRAST COMPARISON: CT scan abdomen pelvis 11/28/2016 HISTORY: Known lung carcinoma history of previous small bowel obstruction, history of previous surgery for abdominal adhesions, having increased abdominal pain today TECHNIQUE: Multiaxial scans obtained from hemidiaphragms the pelvic floor and were performed with oral and IV contrast. Sagittal and coronal reformats were evaluated as well. FINDINGS: Prominent pleural-parenchymal scarring seen to right lung base with some areas of bronchiectasis as well. There is mild to moderate generalized cardio megaly. The liver spleen stomach and pancreas appear grossly normal. There has been a previous cholecystectomy. The adrenal glands are normal. There is a horseshoe kidney with normal appearing contrast in both portions of the horseshoe kidney. There is no obvious obstructive uropathy. There is tortuosity of the abdominal aorta with borderline aneurysmal dilatation with prominent and diffuse arteriosclerotic calcification of the abdominal aorta. There is opaque mesh in the midline in the midabdomen from previous ventral hernia repair there has been interval decompression of the dilated fluid-filled loops of small bowel seen on the recent study, the contrast-filled loops of small bowel are normal in caliber at this time. There is moderate oral contrast mixed with stool throughout the colon. There is diffuse diverticulosis of the descending and sigmoid colon with is no evidence of diverticulitis. I do not definitely identify the appendix but there are no pericecal inflammatory changes. The urinary bladder is well distended with urine showing a mildly thickened wall probably due to mild chronic outlet obstruction. The prostate is slightly enlarged. The lumbar spine and bony pelvis appear normal. IMPRESSION: Interval decompression of the dilated fluid-filled small bowel loops seen on the recent study consistent with resolving small bowel obstruction. There is diffuse diverticulosis without diverticulitis as described, no other significant acute abnormality noted
== END ==
LOC: LAB 12-15 10:32 → COP 12:45
PROVIDERS: Surgery
DX: R52 Pain, unspecified (principal); Z87.19 Personal history of other diseases of the digestive system
CPT/HCPCS: J1642; Q9967

== ENCOUNTER → 2017-02-15 | Outpatient (CLI) | payer MEDICARE, OTHER ==
[~2017-02-15] MED LIST changes: +PREDNISONE 5MG.5 MG PO
[2017-02-15 16:50] LABS: HEMOGLOBIN 8.9 g/dL (14.1-18.0)
[2017-02-15 18:03] LABS: ABO BLOOD TYPE O; ANTIHUMAN GLOB CROSSMATCH COMPAT; RH BLOOD TYPE POSITIVE
[2017-02-15 18:04] LABS: ANTIHUMAN GLOB CROSSMATCH COMPAT
== END ==
LOC: LAB 15:32
PROVIDERS: Family Medicine
DX: D50.9 Iron deficiency anemia, unspecified (principal)

== ENCOUNTER 2017-02-16 09:00 | Outpatient (CLI) | payer MEDICARE, OTHER ==
[~2017-02-16] VITALS: Ht 180.3 cm; Wt 63.5 kg
[2017-02-16] VITALS (18 sets, daily range): BP systolic 107–156; BP diastolic 59–78
[~2017-02-16 09:00] MED LIST changes: -PREDNISONE 5MG.5 MG PO
[2017-02-16] MEDS ORDERED: PREDNISONE 5MG.5 MG PO (12:15)
[2017-02-16 14:36] LABS: HEMOGLOBIN 9.8 g/dL (14.1-18.0)
== END 2017-02-16 14:20 | disposition home or self-care (01) ==
LOC: COP 09:00
PROVIDERS: Family Medicine
DX: D50.9 Iron deficiency anemia, unspecified (principal)
CPT/HCPCS: J1642; P9016